=== PATIENT | female | born 1930 | race Caucasian/White ===

== ENCOUNTER 2018-11-10 13:09 | Inpatient (IN) ==
[2018-11-10] MEDS ORDERED: NS 1,000 ML IV ONE ×2 (14:58→18:12)
[2018-11-10] MEDS ORDERED: ZOFRAN IV ONE (14:58)
[2018-11-10 15:04] LABS: INFLUENZA A NEGATIVE (NEGATIVE); INFLUENZA B NEGATIVE (NEGATIVE)
[2018-11-10 15:13] LABS: BASO# 0.01 X1000 (0.0-0.2); BASO% 0.1 % (0.0-0.8); HEMATOCRIT 47.4 % (37.0-47.0); HEMOGLOBIN 15.4 g/dL (12.0-16.0); IMM GRAN# 0.02 X1000 (0.0-0.04); IMM GRAN% 0.3 % (0.0-0.5); LYMPH# 0.29 X1000 (1.2-3.4); MCH 29.2 PG (27-31); MCHC 32.5 g/dL (33-37); MCV 89.9 FL (81-99); MONO# 0.49 X1000 (0.11-0.59); MONO% 6.7 % (1.7-9.3); MPV 11.7 FL (7.4-10.4); NEUT# 6.53 X1000 (1.4-6.5); NEUT% 88.9 % (42.2-75.2); PLT 123 X1000 (130-400); RBC 5.27 XMIL (4.2-5.4); RDW 13.7 % (11.5-14.5); WBC 7.34 X1000 (4.8-10.8)
[2018-11-10 15:24] LABS: AGAP 16; ALBUMIN 4.1 g/dL (3.5-5.0); ALKALINE PHOSPHATASE 92 U/L (32-104); BUN 16 mg/dL (8-22); CHLORIDE 101 mmol/L (98-107); COSMO 284; CREATININE 0.7 mg/dL (0.5-0.9); ESTIMATED GFR > 60; GLUCOSE 130 mg/dL (70-104); GOT 23 U/L (10-30); GPT 12 U/L (10-36); LIPASE 7 U/L (13-60); POTASSIUM 3.6 mmol/L (3.5-5.1); SODIUM 141 mmol/L (136-145); TCO2 24 mmol/L (25-35); TOTAL PROTEIN 7.9 g/dL (6.3-8.3)
--- NOTE | 2018-11-10 16:49 | Diag Imaging Result Doc PS360 ---
EXAM: CT ABD/PELVIS W/IV CONT ONLY - 11/10/2018 HISTORY: abd pain TECHNIQUE: CT abdomen/pelvis with intravenous contrast. No oral contrast administered per request the referring provider. COMPARISON: Without contrast CT renal stone search of 08/24/2007 FINDINGS: The visualized lung bases appear clear except for mild subsegmental atelectasis. There are no substantial abnormalities of the liver, spleen, adrenal glands, or pancreas (other than some pancreatic atrophic changes) identified. There are no calcified gallstones or pericholecystic inflammation identified. There is right hydronephrosis to the ureteropelvic junction. There is no obstructing right renal stone identified. The hydronephrosis may relate to progressive change associated with partial ureteropelvic junction obstruction. There are nonobstructing stones in the bilateral kidneys. There are some cortical scarring at the left kidney. There is no left hydronephrosis identified. There are no substantial enlarged lymph nodes identified. There are atherosclerotic calcifications noted. There are lumbar spine degenerative changes noted. There is no evidence of bowel obstruction. The appendix is unremarkable. There is mild to moderate wall thickening along much of the colon and rectum. This is suspicious for colitis. There is colonic diverticulosis but there is no indication of diverticulitis. There is no abscess identified. There is no free air identified. There is no substantial free fluid seen. IMPRESSION: Moderate relatively diffuse colitis. No abscess. No free air. Uncomplicated colonic diverticulosis. No bowel obstruction. Right hydronephrosis which may relate to progressive changes from chronic partial ureteropelvic junction obstruction. Nonobstructing stones in bilateral kidneys. Left renal cortical scarring. This exam was performed using automated exposure control, adjustment of mA or kV according to patient size, and/or use of iterative reconstruction technique. Electronically signed by Paulie Mena 11/10/2018 4:47 PM
[2018-11-10 16:52] LABS: BILIRUBIN URINE NEGATIVE (NEGATIVE); BLOOD URINE 2+ (NEGATIVE); CLARITY SLIGHTLY CLOUDY (CLEAR); COLOR AMBER; GLUCOSE URINE NEGATIVE (NEGATIVE); KETONE URINE 2+(Moderate) mg/dL (NEGATIVE); PROTEIN URINE 1+(30 mg/dL) mg/dL (NEGATIVE); UROBILINOGEN URINE NORMAL
[2018-11-10 16:53] LABS: LEUKOCYTES URINE TRACE (NEGATIVE); NITRITE URINE NEGATIVE (NEGATIVE); URINE SOURCE CLEAN CATCH
[2018-11-10 16:54] LABS: URINE BACTERIA 4+ /HFP; URINE EPITHELIAL CELLS >10 /HPF (<10); URINE RBC <10 /HPF (<10); URINE WBC <10 /HPF (<10)
[2018-11-10 16:55] LABS: URINE CAST NONE SEEN /LPF; URINE CRYSTAL NONE SEEN /HPF; URINE YEAST NONE SEEN /HPF
--- NOTE | 2018-11-10 18:09 | PROVIDER DOCUMENTATION ---
This chart was entered by Alicia Gay Scribe, acting as scribe for Jelani Keys MD. HPI-Abdominal Pain/GI Problem - General Chief Complaint: N/V/D Stated Complaint: N/V/D/WEAKNESS Time Seen by Provider: 11/10/18 14:01 Source: patient Allergies/Adverse Reactions: Patient Allergies Allergy/AdvReac Type Severity Reaction Status Date / Time hydrocodone AdvReac NAUSEA/VOMI Verified 07/24/18 15:49 TING Home Medications: Home Medication List Medication Instructions Recorded Confirmed Last Taken Type Carvedilol [Coreg] 6.25 mg PO DAILY 04/21/14 04/28/14 04/28/14 06:30 History LOVAstatin [Mevacor] 20 mg PO DAILY 04/21/14 04/28/14 04/27/14 21:00 History Acetaminophen with Codeine 1 each PO Q4-6H PRN PRN #0 tablet 04/24/14 04/28/14 04/27/14 18:30 Rx [Tylenol with Codeine #3] Levofloxacin [Levaquin] 750 mg PO DAILY #8 tablet 04/24/14 04/28/14 04/27/14 21:00 Rx Aspirin [Aspirin EC] 81 mg PO DAILY 04/28/14 04/28/14 04/27/14 09:00 History - History of Present Illness-ABD Nature of Presenting Problems: 88 yof presents to ED c/o persistent vomiting, diarrhea, weakness since Friday night. Pt also states she fell Friday night in the bathroom floorand was too weak to get up so, layed there until the next morning when her woke up and could help her up.Pt has hx of HTN and hyperlipidemia. Pt denies abdominal pain, chest pain or SOB. Modifying Factors: improves with: nothing Review of Systems - Adult - REVIEW OF SYSTEMS - ADULT Constitutional: reports: see HPI, matt. denies: chills, fever Eyes: reports: no symptoms reported Ears, Nose, Mouth & Throat: reports: no symptoms reported Cardiovascular: reports: see HPI. denies: chest pain, syncope Respiratory: reports: no symptoms reported Gastrointestinal: reports: see HPI, diarrhea, nausea, vomiting. denies: abdominal pain, constipation Genitourinary: reports: no symptoms reported Musculoskeletal: reports: no symptoms reported Integumentary: reports: no symptoms reported Neurological: reports: see HPI, dizziness/vertigo, loss of balance Psychiatric: reports: no symptoms reported Endocrine: reports: no symptoms reported Hematologic/Lymphatic: reports: no symptoms reported Allergic/Immunologic: reports: no symptoms reported All Other Systems: Reviewed and Negative Past History - Adult - PAST MEDICAL HISTORY-ADULT Review of Records: reports: Old Records Reviewed, Nursing Assessment Review, Medications Reviewed, Social history reviewed & non-contributory. Major Childhood Illnesses: reports: denies history Cardiovascular: reports: HTN Respiratory: reports: denies history Gastrointestinal: reports: denies history Obstetrical/Gynecological: reports: denies history Genitourinary: reports: denies history Musculoskeletal: reports: denies history Neurological: reports: denies history Endocrine/Immune: reports: denies history Other Conditions: reports: denies history - PRIOR SURGERIES/PROCEDURES Surgical/Procedure History: reports: orthopedic (extremity) - IMMUNIZATION STATUS Childhood Immunizations: See Nurse Assessment Flu Vaccine: See Nurse Assessment - FAMILY HISTORY Family History: reviewed, not pertinent - SOCIAL HISTORY Smoking: denies Physical Exam-General - PHYSICAL EXAM-ADULT Initial Vital Signs Reviewed: Yes - CONSTITUTIONAL General Appearance: appears well, alert, no apparent distress. negative: combative - EYES Eyes: PERRL/EOMI, pink conjunctivae. negative: photophobia - HEAD, EARS, NOSE, MOUTH & THROAT HENMT: normal ENT inspection, dental decay. negative: moist mucous membranes, angioedema - NECK Neck: non-tender, full range of motion, supple, normal inspection. negative: Brudzinski's sign, carotid bruit - RESPIRATORY Respiratory: chest non-tender, lungs clear, normal breath sounds, no pleuratic chest pain, no respiratory distress, no accessory muscle use. negative: crackles, rales, rhonchi - CARDIOVASCULAR Cardiovascular: normal peripheral pulses, no edema, no gallop, no JVD, tachycardia. negative: JVD, bradycardia - GASTROINTESTINAL (ABDOMEN) Abdominal Exam: normal bowel sounds, non tender, soft. negative: rigid, rebou nd, tenderness - LYMPHATIC Lymphatic: no adenopathy. negative: striations - MUSCULOSKELETAL Back Exam: normal inspection. negative: swelling Extremity: normal range of motion, normal inspection. negative: deformity - SKIN Integumentary: normal color, normal turgor, warm/dry. negative: diaphoresis, jaundice - PSYCHIATRIC Psych/Mental Status: normal mood/affect, normal thought content, normal thought process, oriented x 3. negative: paranoid Progress - PLAN OF CARE/RESULTS Progress/Plan/Lab Results: Vital Signs - 8 hr 11/10/18 13:16 Temperature 98.3 F Pulse Rate 90 Respiratory Rate 18 Blood Pressure 134/82 O2 Sat by Pulse Oximetry 96 Orders Category Date Time Status AMYLASE [CHEM] Stat Lab 11/10/18 13:22 Ordered CBC WITH DIFF [HEME] Stat Lab 11/10/18 13:21 Ordered COMPREHENSIVE METABOLIC PANEL [CHEM] Stat Lab 11/10/18 13:22 Uncollected Flu [INFLUENZA SCREEN PL] Stat Lab 11/10/18 13:19 Received LIPASE [CHEM] Stat Lab 11/10/18 13:[address] W/POSS RFLX CULT [URINALYSIS] Stat Lab 11/10/18 13:22 Unco llected Result Diagrams: 11/10/18 14:48 11/10/18 14:48 - CT/MRI 1 CT Study: Abdomen, Pelvis Impression: See EMR Report (IMPRESSION: Moderate relatively diffuse colitis. No abscess. No free air. Uncomplicated colonic diverticulosis. No bowel obstruction. Right hydronephrosis which may relate to progressive changes from chronic partial ureteropelvic junction obstruction. Nonobstructing stones in bilateral kidneys. Left renal cortical scarring. This exam was performed using automated exposure control, adjustment of mA or kV according to patient size, and/or use of iterative reconstruction technique. Electronically signed by Paulie Mena 11/10/2018 4:47 PM) - CONSULTS/PCP/HOSPITALIST Notification #1 *Consult/PCP/Hospitalist*: Dr Cespedes Time Discussed: 18:08 Consult Disposition: Admit Departure - Departure Date of Disposition Decision: 11/10/18 Time of Disposition Decision: 18:06 DIAGNOSIS: Colitis, UTI (urinary tract infection), Hematuria, Weakness Disposition: ADMITTED INPATIENT 09 Certified Medical Emergency: Emergent Condition: Fair Referrals and Follow-Ups: Wagner Cespedes MD [Primary Care Provider] - - Critical Care Note This patient required my direct & personal management of CC.: No Attestation - Physician/ DALLIN Attestation Patient care was provided by Advanced Practice Provider:: No The physician spent face to face time with patient:: Yes Advanced Practice Provider documentation review:: Supervising physician onsite and consulted in the evaluation and care of this patient. The physician did have a face to face encounter with the patient. This chart was documented by the indicated scribe, (Alicia Gay, Ray) and accurately reflects the services I performed and decisions made by me, Jelani Keys MD, as attested by the provider's signature.
[2018-11-10] MEDS ORDERED: NS 1,000 ML ONE (18:21)
[2018-11-10] MEDS ORDERED: ROCEPHIN 1 GM in NS 50 ML IV SCH (18:30)
[2018-11-10 20:29] LABS: BANDS 10 % (0-1); LARGE PLATELETS 1+; LYMPHS 7 % (21-51); MONO 8 % (1-9); SEGS 75 % (42-75)
[2018-11-11] MEDS: ZOFRAN IV PRN ×3 (00:28→22:47)
[2018-11-11] MEDS: TYLENOL PO PRN (04:36)
[2018-11-11] MEDS ORDERED: ROCEPHIN IV SCH (09:00)
[2018-11-11] MEDS: COZAAR PO SCH (10:09)
[2018-11-11] MEDS: MEVACOR PO SCH (10:09)
[2018-11-11] MEDS: NS 1,000 ML IV SCH (10:10)
[2018-11-11] MEDS: COREG PO SCH (10:10)
[2018-11-11] MEDS: ASPIRIN EC PO SCH (10:30)
[2018-11-11 13:58] LABS: AGAP 12; ALBUMIN 3.2 g/dL (3.5-5.0); ALKALINE PHOSPHATASE 72 U/L (32-104); BUN 13 mg/dL (8-22); CALCIUM 8.1 mg/dL (8.8-10.2); CHLORIDE 104 mmol/L (98-107); COSMO 283; CREATININE 0.8 mg/dL (0.5-0.9); ESTIMATED GFR > 60; GLUCOSE 158 mg/dL (70-104); GOT 22 U/L (10-30); GPT 11 U/L (10-36); MAGNESIUM 1.8 mg/dL (1.5-2.7); POTASSIUM 3.3 mmol/L (3.5-5.1); SODIUM 140 mmol/L (136-145); TCO2 24 mmol/L (25-35); TOTAL PROTEIN 6.3 g/dL (6.3-8.3)
[2018-11-11 13:59] LABS: CK PROFILE 398 U/L (24-173)
[2018-11-11 14:06] LABS: BASO# 0.02 X1000 (0.0-0.2); BASO% 0.2 % (0.0-0.8); HEMATOCRIT 42.6 % (37.0-47.0); HEMOGLOBIN 14.1 g/dL (12.0-16.0); IMM GRAN# 0.05 X1000 (0.0-0.04); IMM GRAN% 0.6 % (0.0-0.5); LYMPH# 0.26 X1000 (1.2-3.4); LYMPH% 3.2 % (20.5-51.1); MCH 29.9 PG (27-31); MCHC 33.1 g/dL (33-37); MCV 90.4 FL (81-99); MONO# 0.63 X1000 (0.11-0.59); MONO% 7.8 % (1.7-9.3); MPV 11.7 FL (7.4-10.4); NEUT# 7.14 X1000 (1.4-6.5); NEUT% 88.2 % (42.2-75.2); PLT 114 X1000 (130-400); RBC 4.71 XMIL (4.2-5.4); RDW 13.8 % (11.5-14.5)
[2018-11-11] MEDS: FLAGYL PO SCH ×2 (14:08→20:32)
[2018-11-11 14:19] LABS: CK INDEX 0.5 (0.0-2.5); CK-MB 1.83 ng/mL (0.0-5.0)
[2018-11-11 14:37] LABS: BANDS 7 % (0-1); HYPOCHROM 2+; LARGE PLATELETS 2+; LYMPHS 2 % (21-51); MONO 11 % (1-9); SEGS 80 % (42-75)
[2018-11-11] MEDS: NEURONTIN PO SCH ×2 (16:21→20:32)
[2018-11-11] MEDS ORDERED: CIPRO PO SCH (21:00)
[2018-11-12] MEDS: TYLENOL PO PRN ×2 (00:17→05:00)
[2018-11-12] MEDS: FLAGYL PO SCH (01:15)
[2018-11-12] MEDS: NS 1,000 ML IV SCH ×3 (04:57→16:35)
[2018-11-12 08:26] LABS: BASO# 0.02 X1000 (0.0-0.2); BASO% 0.2 % (0.0-0.8); EOS# 0.01 X1000 (0.0-0.7); EOS% 0.1 % (0.0-10.0); HEMATOCRIT 38.9 % (37.0-47.0); IMM GRAN# 0.14 X1000 (0.0-0.04); IMM GRAN% 1.6 % (0.0-0.5); LYMPH# 0.34 X1000 (1.2-3.4); LYMPH% 3.8 % (20.5-51.1); MCHC 33.4 g/dL (33-37); MCV 89.8 FL (81-99); MONO# 0.81 X1000 (0.11-0.59); MPV 11.8 FL (7.4-10.4); NEUT# 7.65 X1000 (1.4-6.5); NEUT% 85.3 % (42.2-75.2); PLT 115 X1000 (130-400); RBC 4.33 XMIL (4.2-5.4); RDW 13.8 % (11.5-14.5); WBC 8.97 X1000 (4.8-10.8)
[2018-11-12 08:42] LABS: ALBUMIN 2.6 g/dL (3.5-5.0); CALCIUM 7.7 mg/dL (8.8-10.2); POTASSIUM 3.3 mmol/L (3.5-5.1); TOTAL BILIRUBIN 0.8 mg/dL (0.20-1.00); TOTAL PROTEIN 5.2 g/dL (6.3-8.3)
[2018-11-12 09:44] LABS: BANDS 5 % (0-1); LYMPHS 8 % (21-51); MONO 3 % (1-9); SEGS 84 % (42-75)
[2018-11-12] MEDS ORDERED: SODIUM CHLORIDE 0.9% INJ PRN (09:46)
[2018-11-12] MEDS ORDERED: IMODIUM PO PRN (09:56)
[2018-11-12] MEDS ORDERED: CIPRO 400 MG/D5W 400 MG/200 ML IVPB IV SCH (10:00)
[2018-11-12] MEDS: PHENERGAN IV PRN (10:41)
[2018-11-12] MEDS: COREG PO SCH (10:42)
[2018-11-12] MEDS: ASPIRIN EC PO SCH (10:42)
[2018-11-12] MEDS: CULTURELLE PO SCH (10:42)
[2018-11-12] MEDS: COZAAR PO SCH (10:42)
[2018-11-12] MEDS: MEVACOR PO SCH (10:42)
[2018-11-12] MEDS: NEURONTIN PO SCH ×3 (10:42→20:38)
--- NOTE | 2018-11-12 10:46 | Diag Imaging Result Doc PS360 ---
EXAM: CHEST-2 VIEWS - 11/12/2018 HISTORY: wheezing and desat TECHNIQUE: Chest two views COMPARISON: 01/30/2017 FINDINGS: Inspiration is somewhat shallow. Allowing for inspiration, lungs appear essentially clear. There is no consolidation, pleural effusion, or pneumothorax identified. There are stable small calcified granuloma from old granulomatous disease. IMPRESSION: Somewhat shallow inspiration. No other acute changes. Electronically signed by Paulie Mena 11/12/2018 10:44 AM
[2018-11-12 10:50] LABS: C DIFF TOXIN PL POSITIVE (NEGATIVE); OCCULT BLOOD 1 NEGATIVE (NEGATIVE)
[2018-11-12] MEDS: FLAGYL 500 MG/NS 500 MG/100 ML IVPB IV SCH ×4 (11:01→23:00)
[2018-11-12] MEDS: NS + KCL 20 MEQ 1,000 ML IV SCH (12:11)
[2018-11-12] MEDS: ZOFRAN IV PRN (15:57)
[2018-11-12] MEDS: VANCOCIN PO SCH ×2 (15:57→20:38)
[2018-11-12] MEDS ORDERED: XOPENEX NEB INH ONE (20:02)
[2018-11-12] MEDS: LOVENOX SUBQ SCH (20:38)
[2018-11-12] MEDS: XOPENEX NEB INH SCH (22:40)
[2018-11-13] MEDS: VANCOCIN PO SCH ×4 (03:00→20:53)
[2018-11-13] MEDS: XOPENEX NEB INH SCH ×6 (03:13→23:22)
[2018-11-13] MEDS: NS + KCL 20 MEQ 1,000 ML IV SCH ×2 (03:56→06:22)
[2018-11-13] MEDS: NS 1,000 ML IV SCH ×3 (03:57→20:53)
[2018-11-13] MEDS: FLAGYL 500 MG/NS 500 MG/100 ML IVPB IV SCH ×4 (05:53→22:39)
[2018-11-13 07:48] LABS: BASO# 0.02 X1000 (0.0-0.2); BASO% 0.2 % (0.0-0.8); HEMATOCRIT 39.9 % (37.0-47.0); HEMOGLOBIN 12.8 g/dL (12.0-16.0); IMM GRAN# 0.38 X1000 (0.0-0.04); IMM GRAN% 3.4 % (0.0-0.5); LYMPH# 0.51 X1000 (1.2-3.4); LYMPH% 4.6 % (20.5-51.1); MCH 28.8 PG (27-31); MCHC 32.1 g/dL (33-37); MCV 89.9 FL (81-99); MONO# 1.39 X1000 (0.11-0.59); MONO% 12.5 % (1.7-9.3); MPV 12.6 FL (7.4-10.4); NEUT# 8.84 X1000 (1.4-6.5); NEUT% 79.3 % (42.2-75.2); PLT 126 X1000 (130-400); RBC 4.44 XMIL (4.2-5.4); RDW 14.4 % (11.5-14.5); WBC 11.14 X1000 (4.8-10.8)
[2018-11-13 07:51] LABS: ALBUMIN 2.1 g/dL (3.5-5.0); CALCIUM 7.5 mg/dL (8.8-10.2); CREATININE 1.5 mg/dL (0.5-0.9); POTASSIUM 3.5 mmol/L (3.5-5.1); TOTAL BILIRUBIN 0.4 mg/dL (0.20-1.00); TOTAL PROTEIN 4.8 g/dL (6.3-8.3)
[2018-11-13 08:26] LABS: LYMPHS 6 % (21-51); MONO 11 % (1-9); SEGS 82 % (42-75)
[2018-11-13 08:27] LABS: EOS 1 % (1-10); INR 1.18; PROTIME 15.6 Seconds (11.0-16.0)
[2018-11-13] MEDS: LEVAQUIN 250 MG/D5W 250 MG/50 ML IVPB IV SCH (09:41)
[2018-11-13] MEDS: LOVENOX SUBQ SCH (09:42)
[2018-11-13] MEDS: NEURONTIN PO SCH ×3 (09:42→20:53)
[2018-11-13] MEDS: COREG PO SCH (09:42)
[2018-11-13] MEDS: CULTURELLE PO SCH (09:42)
[2018-11-13] MEDS: COZAAR PO SCH (09:43)
[2018-11-13] MEDS: ASPIRIN EC PO SCH (09:43)
--- NOTE | 2018-11-13 11:36 | Diag Imaging Result Doc PS360 ---
EXAM: LUNG SCAN / VQ HISTORY: elevated D-dimer; SOB TECHNIQUE: Ventilatory images obtained during inhalation of 38 mCi technetium DTPA. Perfusion images were obtained following the administration of 5.9 mCi technetium MAA COMPARISON: Chest radiograph 11/12/2018 FINDINGS: Perfusion images show no peripheral, wedge-shaped, segmental abnormalities to suggest acute pulmonary embolism. Ventilatory images show patchy radiotracer distribution. No mismatches. There is elevation the right hemidiaphragm. IMPRESSION: No evidence for acute pulmonary embolism. Electronically signed by Nikkie De 11/13/2018 11:33 AM
[2018-11-13] MEDS: ZOFRAN IV PRN (12:28)
--- NOTE | 2018-11-13 12:31 | EKG Report ---
Test Performed on : 11/13/2018 11:11:50 AM Test Reason : tachycardia; dizziness Blood Pressure : / mmHG Vent. Rate : 099 BPM Atrial Rate : 099 BPM P-R Int : 190 ms QRS Dur : 078 ms QT Int : 342 ms P-R-T Axes : 050 -08 040 degrees QTc Int : 438 ms Sinus rhythm. with premature atrial complexes. Otherwise normal ECG When compared with ECG of 28-APR-2014 09:05, premature atrial complexes. are now present Confirmed by Wagner Cespedes MD ([id number]) on 11/15/2018 11:05:29 AM
--- NOTE | 2018-11-13 12:45 | PROGRESS NOTE ---
DATE: 11/11/2018 OBJECTIVE: Temperature is 100.3 orally, pulse was 99, respiratory rate 20, blood pressure 149/67, O2 saturation on room air was 97%. She has had the following labs. She had negative flus from the outset of admission. Her urinalysis from admission showed 1+ protein, 2+ ketones, 2+ blood, less than 10 RBCs, trace white cells, less than 10 white cells and greater than 10 epithelial cells, 4+ bacteria. Her comp showed sodium 140, potassium 3.3, chloride 104, CO2 is 24, BUN is 13, creatinine 0.8, GFR greater than 60, glucose 158. Calcium 8.1, magnesium 1.8, total bilirubin 0.7. AST is 22, ALT is 11, alkaline phosphatase 72. CK is 398. Index 0.5. CK index 1.83. Total protein 6.3, albumin 3.2, globulin 3. She continues to have vomiting and diarrhea, lies kind of motionless in the bed, not really having significant belly pain. She is too nauseated to eat and is having lots of diarrhea. She is not urinating that much. ASSESSMENT AND PLAN: We will continue to hydrate, and we will replace her potassium. cc: Wagner Cespedes MD
--- NOTE | 2018-11-13 12:48 | PROGRESS NOTE ---
DATE: 11/12/2018 OBJECTIVE: Vital signs: Temperature 99.4 but has been running a temperature in the evening. Heart rate 121, respiratory rate 23, blood pressure 134/54, O2 saturation is 99% on 2 L. Her labs on 11/12/2018 showed sodium 142, potassium 3.3, chloride 109, CO2 of 23, BUN is 22, creatinine 1, glucose 121, GFR is 52, calcium 7.7, but albumin is 2.6. Total protein 5.2. LFTs are normal. Lactate is normal. Stool shows C. difficile toxin, so now we have an etiology of her nausea, vomiting, diarrhea and generalized weakness. I am not impressed with her urinary symptoms. I think she does not really complain of anything that would suggest that she has a urinary tract infection. Her culture is growing out Klebsiella pneumoniae. Stool with no enteric pathogens. She continues to have no significant belly pain, just general weakness, vomiting and diarrhea. We, however, are going to begin treatment on her Clostridium difficile. We are not sure where she got it. She has not been on any antibiotics. Nobody in her family has got it. We will use some vancomycin for it along with metronidazole and see if we can impact the illness. She has been having some issues with shortness of breath. Legs are not particularly swollen. Lungs are relatively clear. I have not seen her during one of these spells, but we are thinking about doing a venogram or some imaging of the legs and maybe VQ scan on her in the a.m. and make sure she is not throwing PEs. cc: Wagner Cespedes MD
--- NOTE | 2018-11-13 12:55 | PROGRESS NOTE ---
DATE: 11/13/2018 The patient continues to have some diarrhea but has not eaten anything nor has she thrown up but the initial night she presented. Diarrhea still persists. She is growing out Klebsiella. We are including that with some Cipro or Levaquin. We are continuing to rehydrate. We are trying to encourage some prophylactic usage of antiemetics to premedicate her for meals. She is not eating much. Her albumin is dropping a bit. Tongue still dry, but she is alert. She had a VQ scan that showed no clots. The leg images showed no clots. So we had started therapeutic Lovenox the night prior, and we are going to wean her down to just DVT prevention dosing. cc: Wagner Cespedes MD
--- NOTE | 2018-11-13 12:59 | Diag Imaging Result Doc PS360 ---
EXAM: CHEST-PORTABLE HISTORY: sob TECHNIQUE: Single view of the chest was performed portably. COMPARISON: 11/12/2018 FINDINGS: The cardiomediastinal silhouette is within normal limits. Lung volumes are reduced. There is probably a small left effusion. The pulmonary vasculature is not congested. No focal consolidation. IMPRESSION: Reduced lung volumes. Tiny left effusion. Electronically signed by Nikkie De 11/13/2018 12:57 PM
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
--- NOTE | 2018-11-13 17:47 | Extremity Venous Study ---
EXAM: Venous U/S Bilateral Legs 11/13/2018 HISTORY: elevated d-dimer TECHNIQUE: Compression venous ultrasound with color Doppler of both lower extremities. COMMENT: The deep veins of both lower extremities are compressible and demonstrate color Doppler flow with augmentation. No abnormal fluid collections are present. There has been no significant change since the previous examination of 05/07/2018. IMPRESSION: No evidence of deep venous thrombosis. Electronically signed by Jonathon Huizar 11/13/2018 5:44 PM
[2018-11-13] MEDS: MEVACOR PO SCH (20:53)
[2018-11-14] MEDS: VANCOCIN PO SCH ×4 (02:45→21:00)
[2018-11-14] MEDS: XOPENEX NEB INH SCH ×7 (03:15→23:55)
[2018-11-14] MEDS: FLAGYL 500 MG/NS 500 MG/100 ML IVPB IV SCH ×4 (04:45→22:43)
[2018-11-14] MEDS ORDERED: LANOXIN IV STA (04:58)
[2018-11-14] MEDS ORDERED: NS 500 ML IV ONE (04:59)
[2018-11-14] MEDS ORDERED: NEO-SYNEPHRINE 50 MG in NS 250 ML IV SCH (07:30)
[2018-11-14 07:58] LABS: BASO# 0.03 X1000 (0.0-0.2); BASO% 0.2 % (0.0-0.8); EOS# 0.13 X1000 (0.0-0.7); EOS% 1.1 % (0.0-10.0); HEMOGLOBIN 13.7 g/dL (12.0-16.0); IMM GRAN# 0.21 X1000 (0.0-0.04); IMM GRAN% 1.7 % (0.0-0.5); LYMPH# 0.52 X1000 (1.2-3.4); LYMPH% 4.2 % (20.5-51.1); MCH 29.3 PG (27-31); MCHC 32.6 g/dL (33-37); MCV 89.7 FL (81-99); MONO% 7.3 % (1.7-9.3); NEUT# 10.56 X1000 (1.4-6.5); NEUT% 85.5 % (42.2-75.2); PLT 129 X1000 (130-400); RBC 4.68 XMIL (4.2-5.4); WBC 12.35 X1000 (4.8-10.8)
[2018-11-14] MEDS: NEO-SYNEPHRINE 50 MG in NS 250 ML IV SCH ×2 (07:59→17:12)
[2018-11-14 08:13] LABS: CALCIUM 7.8 mg/dL (8.8-10.2); CREATININE 1.4 mg/dL (0.5-0.9); POTASSIUM 3.4 mmol/L (3.5-5.1); TOTAL BILIRUBIN 0.3 mg/dL (0.20-1.00)
[2018-11-14] MEDS ORDERED: LOPRESSOR IV ONE (08:37)
[2018-11-14] MEDS ORDERED: KLOR-CON PO SCH (09:00)
[2018-11-14] MEDS ORDERED: LOVENOX SUBQ SCH (09:00)
--- NOTE | 2018-11-14 09:16 | PROGRESS NOTE ---
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 She does not recall ever having a history of atrial fibrillation nor do I recall her having one. My office notes are unavailable. She is in atrial fibrillation. Her chest x-ray from the previous day was normal, just low volumes. She did have some issues with her blood pressure, 78. They had been running at 93, and they got down to 82/63 this morning with a heart rate of 138 on 11/14/2018. At 4:00 this morning, her pulse was 66, respiratory rate was 22, blood pressure was 86/52. O2 saturation was 100 here with her 3 L of O2. Her EKG done this morning showed a ventricular rate of 135. There are some nonspecific ST segment changes. I do not clearly see P waves, but it is pretty regular tachycardia. We put her on some Pramod-Synephrine to maintain her blood pressures. They are fine at this minute, still currently has 135 heart rate. We are going to try some amiodarone or a beta kelley here to see if we can convert this. I am going to get Cardiology in to see. cc: Wagner Cespedes MD
[2018-11-14] MEDS: COZAAR PO SCH (09:30)
[2018-11-14] MEDS: LEVAQUIN 250 MG/D5W 250 MG/50 ML IVPB IV SCH (09:30)
[2018-11-14] MEDS: LOVENOX SUBQ SCH (09:30)
[2018-11-14] MEDS: NEURONTIN PO SCH ×3 (09:31→21:00)
[2018-11-14] MEDS: COREG PO SCH (09:31)
[2018-11-14] MEDS: ASPIRIN EC PO SCH (09:31)
[2018-11-14] MEDS: CULTURELLE PO SCH (09:31)
[2018-11-14] MEDS: NS + KCL 20 MEQ 1,000 ML IV SCH ×2 (09:40→22:44)
[2018-11-14 09:53] LABS: EOS 1 % (1-10); LYMPHS 3 % (21-51); MONO 7 % (1-9); SEGS 88 % (42-75)
[2018-11-14] MEDS ORDERED: NS 250 ML IV ONE (10:43)
[2018-11-14] MEDS ORDERED: ALBUMIN 25% IV ONE (10:44)
[2018-11-14 11:18] LABS: BILIRUBIN URINE NEGATIVE (NEGATIVE); BLOOD URINE NEGATIVE (NEGATIVE); CLARITY SL. CLOUDY (CLEAR); COLOR BROWN; GLUCOSE URINE NEGATIVE (NEGATIVE); KETONE URINE 1+(Small) mg/dL (NEGATIVE); LEUKOCYTES URINE 1+ (NEGATIVE); NITRITE URINE POSITIVE (NEGATIVE); PH URINE 6.5; PROTEIN URINE TRACE mg/dL (NEGATIVE); UROBILINOGEN URINE NORMAL
[2018-11-14 11:19] LABS: URINE BACTERIA 1+ /HFP; URINE CAST NONE SEEN /LPF; URINE CRYSTAL NONE SEEN /HPF; URINE EPITHELIAL CELLS <10 /HPF (<10); URINE RBC <10 /HPF (<10); URINE SOURCE CATH; URINE WBC <10 /HPF (<10); URINE YEAST NONE SEEN /HPF
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
[2018-11-14] MEDS: TYLENOL WITH CODEINE #3 PO PRN (21:00)
[2018-11-14] MEDS: MEVACOR PO SCH (21:00)
[2018-11-14] MEDS: PHENERGAN IV PRN (22:41)
[2018-11-15] MEDS: TYLENOL WITH CODEINE #3 PO PRN (01:52)
[2018-11-15] MEDS: VANCOCIN PO SCH ×4 (02:23→22:33)
[2018-11-15] MEDS: PHENERGAN IV PRN (03:22)
[2018-11-15] MEDS: NEO-SYNEPHRINE 50 MG in NS 250 ML IV SCH ×2 (03:23→15:41)
[2018-11-15] MEDS: XOPENEX NEB INH SCH ×7 (03:40→23:30)
[2018-11-15] MEDS: NS + KCL 20 MEQ 1,000 ML IV SCH (07:22)
[2018-11-15] MEDS: FLAGYL 500 MG/NS 500 MG/100 ML IVPB IV SCH ×3 (07:23→20:00)
[2018-11-15] MEDS: ASPIRIN EC PO SCH (08:00)
[2018-11-15] MEDS: COZAAR PO SCH (08:00)
[2018-11-15] MEDS: LEVAQUIN 250 MG/D5W 250 MG/50 ML IVPB IV SCH (08:00)
[2018-11-15] MEDS: COREG PO SCH (08:00)
[2018-11-15] MEDS: CULTURELLE PO SCH (08:00)
[2018-11-15] MEDS: NEURONTIN PO SCH ×3 (08:01→22:33)
[2018-11-15] MEDS: LOVENOX SUBQ SCH (08:01)
--- NOTE | 2018-11-15 08:04 | Diag Imaging Result Doc PS360 ---
EXAM: CHEST-PORTABLE 11/15/2018 HISTORY: wet lung sounds TECHNIQUE: AP portable at 0725 COMMENT: There is worsened blunting of the right costophrenic angle compared to 11/13/2018. There is increased basilar opacity bilaterally which is presumably due to atelectasis. Possibility of mild pulmonary edema cannot be excluded. IMPRESSION: Worsened bibasilar atelectasis and right pleural effusion. Questionable pulmonary edema. Electronically signed by Jonathon Huizar 11/15/2018 8:02 AM
[2018-11-15] MEDS ORDERED: XOPENEX NEB ONE (08:28)
[2018-11-15 10:04] LABS: BASO% 0.7 % (0.0-0.8); EOS# 0.06 X1000 (0.0-0.7); EOS% 0.4 % (0.0-10.0); HEMATOCRIT 47.6 % (37.0-47.0); HEMOGLOBIN 15.1 g/dL (12.0-16.0); IMM GRAN# 0.21 X1000 (0.0-0.04); IMM GRAN% 1.5 % (0.0-0.5); LYMPH# 0.69 X1000 (1.2-3.4); LYMPH% 4.9 % (20.5-51.1); MCH 29.6 PG (27-31); MCHC 31.7 g/dL (33-37); MCV 93.3 FL (81-99); MONO# 1.11 X1000 (0.11-0.59); MONO% 7.9 % (1.7-9.3); MPV 12.5 FL (7.4-10.4); NEUT# 11.95 X1000 (1.4-6.5); NEUT% 84.6 % (42.2-75.2); PLT 139 X1000 (130-400); RDW 16.1 % (11.5-14.5); WBC 14.12 X1000 (4.8-10.8)
[2018-11-15 10:27] LABS: BE -11.1 mmoll (-3.0-3.0); BLOOD TYPE ARTERIAL; METHB 1.5 % (0.0-1.5); O2(CT) 19.2 mL/dL (15.0-23.0); O2HB 93.6 % (95.0-99.0); PCO2(98.6) 39 mmHg (35-45); PO2(98.6) 72 mmHg (60-100); SAMPLE BLOOD; SAO2 96.8 % (95.0-100.0); THB 14.6 g/dL (11.5-17.4)
[2018-11-15 10:27] LABS: ALBUMIN 2.3 g/dL (3.5-5.0); CALCIUM 8.1 mg/dL (8.8-10.2); CREATININE 0.9 mg/dL (0.5-0.9); POTASSIUM 4.3 mmol/L (3.5-5.1); TOTAL BILIRUBIN 0.3 mg/dL (0.20-1.00); TOTAL PROTEIN 5.3 g/dL (6.3-8.3)
[2018-11-15 10:32] LABS: HCO3-(ACT) 16.2 mmoll (20.0-26.0); pH(98.6) 7.22 (7.35-7.45)
[2018-11-15 10:33] LABS: ALLEN TEST YES; MODALITY CANNULA
--- NOTE | 2018-11-15 12:40 | Diag Imaging Result Doc PS360 ---
EXAM: CT ABD/PELVIS W/IV CONT ONLY 11/15/2018 HISTORY: pain TECHNIQUE: This exam was performed using automated exposure control, adjustment of mA or kV according to patient size, and/or use of iterative reconstruction technique. COMMENT: There are large bilateral pleural effusions which were not present on 11/10/2018. Considerable compressive atelectasis is present particularly in the right lower lobe. There is ascites. This was also not present previously. There continues to be mucosal thickening throughout the colon. This appears worse than on the previous study. There is bilateral nephrolithiasis. There is some cortical scarring in the left kidney. There is severe hydronephrosis on the right which may be slightly improved since the previous study. There are two stones in the renal pelvis the larger of the two measuring almost 8 mm in diameter. There is a Lyle catheter in the urinary bladder. There is no evidence of ureterolithiasis. There are granulomata in the spleen. The liver, adrenal glands, pancreas and aorta are stable in appearance. There is some anasarca which was not present at the time the previous study. The gallbladder is distended. There are no apparent stones. Pelvis: There is thickening of the rectosigmoid mucosa and dilatation of the rectum more so than on the previous study. There is considerable edema in the perirectal fat which was not the case previously. The appendix is unremarkable in appearance. The regional skeleton is stable in appearance. IMPRESSION: 1. Bilateral pleural effusions, ascites, and anasarca. 2. Worsened generalized colitis. 3. Slightly improved right hydronephrosis. Bilateral nephrolithiasis. Electronically signed by Jonathon Huizar 11/15/2018 12:38 PM
[2018-11-15] MEDS ORDERED: ALBUMIN 25% IV ONE (13:18)
[2018-11-15] MEDS ORDERED: NS 1,000 ML IV SCH (14:45)
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
--- NOTE | 2018-11-15 16:03 | PROGRESS NOTE ---
DATE: 11/15/2018 She has had a pretty eventful couple of days and eventful night. Her lab today shows that her white count is rising and is at 14,120 with a left shift, 84% to 85% neutrophils. Hematocrit 47.6 suggesting hemoconcentration. She is kind of third spacing fluids in her legs on her chest x-ray and in her abdomen and platelet count is 139. Her blood gases today are pH of 7.22, PCO2 39, not a respiratory acidosis and probably a metabolic acidosis with incomplete correction. Her PO2 is 72 on 28%. Chemistries; sodium 145, potassium 4.3, chloride 117, CO2 15, BUN 40, creatinine 0.9. GFR calculated at 59 which is better than the previous day when it was 35. Her calcium is low at 8.1 but a bit better. Lactate was fine. It is 0.6. Albumin is 2.3. LFTs are normal. We did a CT of her abdomen and pelvis. I checked her rectum, it was negative for impaction. She had bilateral pleural effusions which had not been present on 11/10. She had considerable compressive atelectasis and was particularly large in the right lower lobe. There was abdominal ascites that was not present previously. There continued to be mucosal thickening throughout the colon, worsening since the previous study with a background of some bilateral nephrolithiasis. There is some cortical scarring in the left kidney. There is severe hydronephrosis on the right which may be slightly improved since the previous study. There are 2 stones in the rectal pelvis, the larger of the 2 measuring about 8 mm in diameter. A Lyle is in place. No evidence of urolithiasis. There were granulomata in the spleen. The liver, adrenal glands, pancreas and aorta are all stable. There was some anasarca which was not present at the time of the previous study. The gallbladder was distended. There were no apparent stones. We discussed the case with the hospitalist, Willie Rush MD and Dr. Mccormick of GI. He says that we need to be concerned about toxic megacolon and ischemic gut. We then talked to Dr. Silveira who is going to come and see her and assess her belly as to those two possibilities. Meanwhile, we are going to continue giving her p.o. vancomycin and IV Flagyl. Her lactic acids that were drawn today on two different occasions have been normal. She is a bit more distended and there is edema that is accumulating, possibly in conjunction with her kidney function. cc: Wagner Cespedes MD
[2018-11-15 17:45] LABS: BLOOD TYPE ARTERIAL; METHB 1.5 % (0.0-1.5); O2(CT) 16.9 mL/dL (15.0-23.0); O2HB 93.5 % (95.0-99.0); PCO2(98.6) 48 mmHg (35-45); PO2(98.6) 75 mmHg (60-100); SAMPLE BLOOD; SAO2 96.5 % (95.0-100.0); THB 12.8 g/dL (11.5-17.4)
[2018-11-15 17:48] LABS: HCO3-(ACT) 16.7 mmoll (20.0-26.0); pH(98.6) 7.18 (7.35-7.45)
[2018-11-15 17:49] LABS: ALLEN TEST YES; BE -10.4 mmoll (-3.0-3.0); MODALITY CANNULA
--- NOTE | 2018-11-15 18:22 | GENERAL SURGERY PROGRESS NOTE ---
DATE: 11/15/2018 Ms Link's gases today have deteriorated further. Her pH has fallen down. Her base excess remains in the negative 10 to 11 range. Her lactate is 0.9. In view of her rising pCO2 and fall in pH, I feel like she is gradually becoming worse. Her renal function is deteriorating. I think that her only chance to get better is to undergo surgery for a total abdominal colectomy and ileostomy. I have discussed this with her son. I discussed the benefits and risks, the fact that she will require a colostomy. I discussed it with her as well and she left it up to us. Mr. Link her son is in agreement to proceed realizing the risks involved either way we go. So will proceed with surgery tonight and have her transferred over [facility]. cc: MD Wagner Porter MD
[2018-11-15] MEDS ORDERED: SODIUM CHLORIDE 0.9% 10 ML ONE (18:50)
[2018-11-15] MEDS ORDERED: FENTANYL ONE (18:50)
[2018-11-15] MEDS ORDERED: XYLOCAINE-MPF 2% ONE (18:50)
[2018-11-15] MEDS ORDERED: QUELICIN (DOSE) ONE (18:50)
[2018-11-15] MEDS ORDERED: DIPRIVAN 1% ONE (18:50)
[2018-11-15] MEDS ORDERED: NORCURON ONE ×2 (18:50→20:48)
[2018-11-15] MEDS ORDERED: IMODIUM PO PRN (18:55)
[2018-11-15] MEDS ORDERED: TYLENOL PO PRN (18:56)
[2018-11-15] MEDS ORDERED: SODIUM CHLORIDE 0.9% INJ PRN (18:57)
[2018-11-15] MEDS ORDERED: ZOFRAN IV PRN (18:57)
[2018-11-15] MEDS ORDERED: TYLENOL WITH CODEINE #3 PO PRN (18:58)
[2018-11-15] MEDS ORDERED: NEO-SYNEPHRINE 50 MG in NS 250 ML IV SCH (19:00)
[2018-11-15] MEDS ORDERED: XOPENEX NEB INH SCH (19:30)
[2018-11-15] MEDS ORDERED: NEO-SYNEPHRINE ONE (19:35)
[2018-11-15] MEDS ORDERED: EPHEDRINE ONE ×2 (19:47→21:16)
[2018-11-15] MEDS ORDERED: OFIRMEV 1000 MG/ISOTONIC SOLN 1,000 MG/100 ML BOTTLE ONE (20:03)
--- NOTE | 2018-11-15 21:51 | OPERATIVE NOTE ---
PROCEDURE DATE: 11/15/2018 PROCEDURE: Abdominal colectomy with end-ileostomy. SURGEON: Clif Silveira MD. AUTO VINYL TOP INSTALLER: Cleve. PREOPERATIVE DIAGNOSIS: Clostridium difficile colitis with toxic megacolon. POSTOPERATIVE DIAGNOSIS: Clostridium difficile colitis with toxic megacolon. INDICATIONS: An 88-year-old with Clostridium difficile colitis that has progressed and worsened over the past 5 days despite adequate medical therapy. She is now developing acidosis, increasing white count, and a tender abdomen. DESCRIPTION OF PROCEDURE: Satisfactory general endotracheal anesthesia was achieved, and the abdomen was prepped and draped in a sterile fashion. A midline incision was made. We carried our incision into the abdominal cavity to extend the skin incision. We began at the cecum and incised the white line of Toldt to mobilize the right or ascending colon from the retroperitoneum. We went from proximal to distal along the course of the colon up to the hepatic flexure. We then mobilized the hepatic flexure until the right colon came up into the wound. We then used the LigaSure to take the greater omentum off the transverse colon from right to left. As we progressed toward the splenic flexure, again we continued to take the greater omentum off the distal transverse colon. We then incised the white line of Toldt along the descending colon from the sigmoid up to the splenic flexure again in order to help mobilize the left colon out of the retroperitoneum. We did incise the tissue and mobilized the splenic flexure to get the colon out of the retroperitoneum and far away from the attachments to the spleen. We then went back to the ascending colon. Again, we scored the peritoneum medial to the colon and then began dividing the mesentery with the LigaSure. As we reached the major vessels, we clamped them with Lola clamps, we divided them and ligated with 2-0 silk suture ligatures. We went from a proximal to distal. Took the ileocolic vessels, the right colic, middle colic, and the left colic vessels. We then continued our dissection with the LigaSure down to the sigmoid. We then scored the peritoneum down into the pelvis to the peritoneal reflection. We divided the sigmoid vessels with the LigaSure. We continued distally until we reached near the peritoneal reflection. We divided the ilium with a MELE 80 blue cartridge. This then allowed us to mobilize the colon all the way to the sigmoid and actually to the distal sigmoid and proximal rectum, and here we used a TA 60 green cartridge to divide the thickened proximal rectum. This allowed us to hand off the whole specimen. We then irrigated out the abdomen with the warm saline. We achieved satisfactory hemostasis with electrocautery throughout the extent of the mesentery and the retroperitoneum. We did not feel that we needed to oversew the distal staple line. It was essentially covered up by the uterus anyway. The mesentery was adequately hemostatic. An NG tube was noted to be in appropriate position within the stomach. We then turned our attention to the right mid abdomen where we grasped the skin and made a small opening in the skin making a small stoma. We then dissected down to the anterior rectus sheath and incised the anterior rectus sheath longitudinally and a little bit transversely as well. We spread the rectus muscle and then opened the posterior rectus sheath to admit 2 fingerbreadths easily. We then enlarged the incision enough to deliver the ilium untwisted and adequate to leave some of the anterior abdominal wall. We placed some 3-0 Polysorb into the Khalida's fascia to the bowel wall. We then were satisfied that it was untwisted and had adequate room for the mesentery of the ileum. We then proceeded to close the peritoneum with 2-0 chromic. We closed the fascia with running #2 Prolene. The skin was reapproximated with gayathri. We then covered the wound with a sterile towel. We cut a hole in the flange and placed the flange on the skin. We then amputated the ilium back to viable tissue and then opened and matured the ileostomy using 3-0 Polysorb. The bag was placed. Sterile island dressing was applied. She tolerated it well and was sent to the recovery room in satisfactory condition. cc: MD Wagner Porter MD
[2018-11-15 22:15] LABS: ALLEN TEST YES; BE -10.4 mmoll (-3.0-3.0); BLOOD TYPE ARTERIAL; HCO3-(ACT) 16.8 mmoll (20.0-26.0); METHB 1.4 % (0.0-1.5); O2(CT) 16.2 mL/dL (15.0-23.0); O2HB 97.2 % (95.0-99.0); PCO2(98.6) 34 mmHg (35-45); PO2(98.6) 326 mmHg (60-100); SAMPLE BLOOD; SAO2 99.8 % (95.0-100.0); SRATE 12 BPM; THB 11.2 g/dL (11.5-17.4); TVOL 600 mL; pH(98.6) 7.27 (7.35-7.45)
[2018-11-15] MEDS ORDERED: LEVOPHED 8 MG in D5 1/2 NS 250 ML IV SCH (22:15)
[2018-11-15] MEDS ORDERED: ROCEPHIN 1 GM in NS 50 ML IV SCH (22:15)
[2018-11-15 22:16] LABS: MODALITY VENTILATOR
[2018-11-15] MEDS: NS 1,000 ML IV SCH (22:32)
[2018-11-15] MEDS: MEVACOR PO SCH (22:33)
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
[2018-11-16] MEDS: VANCOCIN PO SCH ×4 (01:22→21:11)
[2018-11-16] MEDS: FLAGYL 500 MG/NS 500 MG/100 ML IVPB IV SCH ×4 (02:44→21:11)
[2018-11-16] MEDS: XOPENEX NEB INH SCH ×6 (03:29→23:35)
[2018-11-16] MEDS: DILAUDID IV PRN ×3 (04:31→12:26)
[2018-11-16 04:38] LABS: ALLEN TEST YES; BE -10.2 mmoll (-3.0-3.0); BLOOD TYPE ARTERIAL; METHB 1.2 % (0.0-1.5); O2(CT) 15.8 mL/dL (15.0-23.0); O2HB 97.2 % (95.0-99.0); PCO2(98.6) 33 mmHg (35-45); PO2(98.6) 129 mmHg (60-100); SAMPLE BLOOD; SAO2 99.8 % (95.0-100.0); SRATE 12 BPM; THB 11.4 g/dL (11.5-17.4); TVOL 600 mL; pH(98.6) 7.28 (7.35-7.45)
[2018-11-16 04:39] LABS: MODALITY VENTILATOR
[2018-11-16 05:45] LABS: BASO# 0.05 X1000 (0.0-0.2); BASO% 0.6 % (0.0-0.8); EOS# 0.07 X1000 (0.0-0.7); EOS% 0.8 % (0.0-10.0); HEMATOCRIT 34.2 % (37.0-47.0); HEMOGLOBIN 10.9 g/dL (12.0-16.0); IMM GRAN# 0.15 X1000 (0.0-0.04); IMM GRAN% 1.7 % (0.0-0.5); LYMPH# 0.65 X1000 (1.2-3.4); LYMPH% 7.3 % (20.5-51.1); MCH 29.2 PG (27-31); MCHC 31.9 g/dL (33-37); MCV 91.7 FL (81-99); MONO# 0.65 X1000 (0.11-0.59); MONO% 7.3 % (1.7-9.3); MPV 11.9 FL (7.4-10.4); NEUT# 7.33 X1000 (1.4-6.5); NEUT% 82.3 % (42.2-75.2); PLT 121 X1000 (130-400); RBC 3.73 XMIL (4.2-5.4); RDW 16.1 % (11.5-14.5)
[2018-11-16 06:00] LABS: CALCIUM 7.9 mg/dL (8.8-10.2); CREATININE 0.9 mg/dL (0.5-0.9); POTASSIUM 3.5 mmol/L (3.5-5.1)
--- NOTE | 2018-11-16 06:00 | Diag Imaging Result Doc PS360 ---
EXAM: CHEST-PORTABLE HISTORY: on vent TECHNIQUE: Portable chest single view COMPARISON: 11/15/2018 FINDINGS: An endotracheal tube has been placed. This is in good position. A nasogastric tube overlies the esophagus and stomach. The lungs are much better expanded on the current exam. There is apical pleural thickening and scarring. There is a small right pleural effusion. IMPRESSION: Endotracheal and nasogastric tubes in good position Electronically signed by Kip Wilkerson 11/16/2018 5:58 AM
[2018-11-16] MEDS: NS 1,000 ML IV SCH ×3 (06:07→15:00)
--- NOTE | 2018-11-16 06:57 | Diag Imaging Result Doc PS360 ---
EXAM: CHEST-PORTABLE HISTORY: on vent TECHNIQUE: Portable chest single view COMPARISON: 11/15/2018 FINDINGS: Endotracheal and nasogastric tubes remain in good position. The small bilateral pleural effusions with underlying atelectasis and/or infiltrates. Heart is not enlarged. IMPRESSION: Stable chest. Electronically signed by Kip Wilkerson 11/16/2018 6:55 AM
[2018-11-16] MEDS ORDERED: LEVAQUIN 250 MG/D5W 250 MG/50 ML IVPB IV SCH (08:00)
[2018-11-16] MEDS: LOVENOX SUBQ SCH (08:48)
[2018-11-16] MEDS: ASPIRIN EC PO SCH (09:14)
[2018-11-16] MEDS: COREG PO SCH (09:14)
[2018-11-16] MEDS: CULTURELLE PO SCH (09:15)
[2018-11-16] MEDS: NEURONTIN PO SCH ×3 (09:15→21:11)
[2018-11-16] MEDS: COZAAR PO SCH (09:15)
--- NOTE | 2018-11-16 10:07 | EKG Report ---
Test Performed on : 11/14/2018 04:47:30 AM Test Reason : irregular tachycardia Blood Pressure : / mmHG Vent. Rate : 130 BPM Atrial Rate : 138 BPM P-R Int : 000 ms QRS Dur : 078 ms QT Int : 314 ms P-R-T Axes : 000 -17 055 degrees QTc Int : 462 ms Atrial fibrillation. with rapid ventricular response. with premature ventricular or aberrantly conduc amarilis complexes. Minimal voltage criteria for LVH, may be normal variant Inferior infarct , age undetermined Cannot rule out Anterior infarct , age undetermined Abnormal ECG When compared with ECG of 13-NOV-2018 11:11, (Unconfirmed) Atrial fibrillation. has replaced Sinus rhythm. Non-specific change in ST segment in Inferior leads Confirmed by Wagner Cespedes MD ([id number]) on 11/29/2018 1:33:20 PM
--- NOTE | 2018-11-16 10:14 | PROGRESS NOTE ---
DATE: 11/16/2018 SUBJECTIVE: The patient is sedated and intubated. The patient is still requiring vasopressors; in this case, she is requiring 1 mcg of Levophed. No other issues noted. OBJECTIVE: Vitals: Temperature 97.7 degrees, heart rate 89, respiratory rate 14, blood pressure 131/52, with MAP of 69, O2 saturation 94% on 50% FiO2. General Examination: This is a chronically ill-looking, 88-year-old, female lying in bed, in no acute distress. Sedated and intubated. Neck: No JVD noted. No carotid bruits. No lymphadenopathy. No thyromegaly. Cardiovascular Examination: S1 and S2 heard. No murmurs, gallops, or rubs. Regular rate and rhythm. Respiratory Examination: Clear bilaterally to auscultation. No work of breathing or using accessory muscles. Abdomen: There is a surgical scar covered by a dressing. There is an ileostomy bag with no drainage, in the right side. The abdomen is soft, apparently nontender to palpation. Bowel sounds present. No organomegaly. Extremities: No clubbing, cyanosis, or edema. Peripheral pulses present in both legs. Neurological Examination: The patient is sedated and intubated. Laboratory Data: White cell count 8.9, hemoglobin 10.9, hematocrit 32.4, platelets 121,000. ABG shows pH 7.28, pCO2 33, and PO2 129. BMP shows sodium 148, with normal creatinine, chloride 120. ASSESSMENT/PLAN: 1. Toxic megacolon, status post total abdominal colectomy and ileostomy. Dr. Silveira from general surgery is following this patient. Apparently, there is no drainage from the ileostomy tube. At this point, we will continue monitoring this patient in the intensive care unit. 2. Acute respiratory failure, on the ventilator. The patient is still requiring FiO2 of 50%. At this point, we will leave the management of the ventilator to Dr. Noel from pulmonary. 3. Septic shock secondary to Clostridium difficile colitis. We are slowly decreasing the amount of Levophed. Upon my examination this morning, she was requiring 1 mcg of Levophed. I think we are going to be ready to stop this medication shortly today. 4. Hyperlipidemia. The patient is not able to take anything by mouth. 5. Paroxysmal atrial fibrillation. At this point, the patient continues to be in sinus rhythm. 6. Disposition. We will continue to monitor this patient closely here in the intensive care unit. cc: Donny Muller MD
--- NOTE | 2018-11-16 10:26 | EKG Report ---
Test Performed on : 11/14/2018 08:30:35 AM Test Reason : ER Blood Pressure : / mmHG Vent. Rate : 135 BPM Atrial Rate : 113 BPM P-R Int : 000 ms QRS Dur : 080 ms QT Int : 382 ms P-R-T Axes : 000 -09 078 degrees QTc Int : 573 ms Supraventricular tachycardia. Nonspecific ST and T wave abnormality Abnormal ECG When compared with ECG of 14-NOV-2018 04:47, (Unconfirmed) Sinus rhythm. has replaced Atrial fibrillation. ST elevation now present in Inferior leads Non-specific change in ST segment in Lateral leads Confirmed by Wagner Cespedes MD ([id number]) on 11/29/2018 1:33:55 PM
[2018-11-16] MEDS ORDERED: DIPRIVAN 1% 1,000 MG/100 ML BOTTLE ONE (14:47)
[2018-11-16] MEDS: DIPRIVAN 1% 1,000 MG/100 ML BOTTLE IV SCH ×2 (14:53→19:41)
[2018-11-16] MEDS: LOPRESSOR IV SCH ×2 (14:55→21:11)
[2018-11-16] MEDS ORDERED: SODIUM BICARBONATE 8.4% 50 MEQ in D5W 1,000 ML IV SCH ×2 (16:00→18:00)
[2018-11-16] MEDS: CLINIMIX E 4.25%-5% SOLUTION 1,000 ML IV SCH (17:20)
[2018-11-16] MEDS: LEVAQUIN 250 MG/D5W 250 MG/50 ML IVPB IV SCH (17:20)
[2018-11-16] MEDS: LASIX IV SCH (17:20)
--- NOTE | 2018-11-16 17:23 | GENERAL SURGERY PROGRESS NOTE ---
DATE: 11/16/2018 Ms Link is now sedated on the ventilator. She is afebrile. Heart rate is 87, blood pressure is 144/58. Her stoma is viable. LABS: White count is 8900, hemoglobin 10.9, hematocrit 34, pH 7.28, pCO2 33, PO2 129 on 60% FiO2. She has been switched to bicarbonate IV fluid which I agree with. Also agree with the Clinimix. We will get Nign is see her about her stoma at some point. Will recheck her labs in the morning. cc: Clif Silveira MD
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
[2018-11-16] MEDS: MEVACOR PO SCH (21:11)
[2018-11-17] MEDS: LASIX IV SCH ×3 (01:17→17:03)
[2018-11-17] MEDS: DIPRIVAN 1% 1,000 MG/100 ML BOTTLE IV SCH ×3 (01:17→15:39)
[2018-11-17] MEDS: FLAGYL 500 MG/NS 500 MG/100 ML IVPB IV SCH ×4 (01:34→21:33)
[2018-11-17] MEDS: LOPRESSOR IV SCH ×5 (01:34→21:34)
[2018-11-17] MEDS: VANCOCIN PO SCH (01:43)
[2018-11-17] MEDS: XOPENEX NEB INH SCH ×6 (03:03→23:30)
[2018-11-17 04:44] LABS: ALLEN TEST YES; BE 3.5 mmoll (-3.0-3.0); BLOOD TYPE ARTERIAL; HCO3-(ACT) 27.7 mmoll (20.0-26.0); METHB 1.3 % (0.0-1.5); O2(CT) 17.2 mL/dL (15.0-23.0); O2HB 96.8 % (95.0-99.0); PCO2(98.6) 26 mmHg (35-45); PO2(98.6) 117 mmHg (60-100); SAMPLE BLOOD; SAO2 99.3 % (95.0-100.0); SRATE 12 BPM; THB 12.5 g/dL (11.5-17.4); TVOL 600 mL
[2018-11-17 04:45] LABS: MODALITY VENTILATOR; pH(98.6) 7.58 (7.35-7.45)
[2018-11-17 04:53] LABS: BASO# 0.01 X1000 (0.0-0.2); BASO% 0.1 % (0.0-0.8); EOS# 0.02 X1000 (0.0-0.7); EOS% 0.3 % (0.0-10.0); HEMATOCRIT 35.6 % (37.0-47.0); IMM GRAN# 0.06 X1000 (0.0-0.04); IMM GRAN% 0.8 % (0.0-0.5); LYMPH# 0.39 X1000 (1.2-3.4); LYMPH% 5.5 % (20.5-51.1); MCH 29.6 PG (27-31); MCHC 33.7 g/dL (33-37); MCV 87.7 FL (81-99); MONO# 0.48 X1000 (0.11-0.59); MONO% 6.8 % (1.7-9.3); MPV 12.1 FL (7.4-10.4); NEUT# 6.11 X1000 (1.4-6.5); NEUT% 86.5 % (42.2-75.2); PLT 114 X1000 (130-400); RBC 4.06 XMIL (4.2-5.4); RDW 15.4 % (11.5-14.5); WBC 7.07 X1000 (4.8-10.8)
[2018-11-17 05:49] LABS: AGAP 11; BUN 24 mg/dL (8-22); CALCIUM 7.8 mg/dL (8.8-10.2); CHLORIDE 113 mmol/L (98-107); COSMO 304; CREATININE 0.7 mg/dL (0.5-0.9); ESTIMATED GFR > 60; GLUCOSE 274 mg/dL (70-104); SODIUM 146 mmol/L (136-145); TCO2 22 mmol/L (25-35)
[2018-11-17 05:50] LABS: POTASSIUM 2.5 mmol/L (3.5-5.1)
[2018-11-17] MEDS: CLINIMIX E 4.25%-5% SOLUTION 1,000 ML IV SCH ×2 (07:21→21:33)
--- NOTE | 2018-11-17 07:26 | Diag Imaging Result Doc PS360 ---
CHEST-PORTABLE - 11/17/2018 INDICATION: respiratory failure COMPARISON: 11/16/2018 FINDINGS: Support tubes are stable. Heart size and pulmonary vascularity remains normal. Stable bibasilar infiltrates or effusions. No new abnormalities. IMPRESSION: No change from prior. Electronically signed by Mike Kingston 11/17/2018 7:24 AM
[2018-11-17] MEDS ORDERED: POTASSIUM CHLORIDE 60 MEQ in D5W 500 ML IV SCH (08:00)
[2018-11-17] MEDS: LOVENOX SUBQ SCH (08:25)
[2018-11-17 08:39] LABS: INR 1.1; PROTIME 15.1 Seconds (11.0-16.0)
[2018-11-17] MEDS: ASPIRIN EC PO SCH (09:04)
[2018-11-17] MEDS: COREG PO SCH (09:05)
[2018-11-17] MEDS: NEURONTIN PO SCH ×2 (09:05→15:32)
[2018-11-17] MEDS: CULTURELLE PO SCH (09:05)
[2018-11-17] MEDS: COZAAR PO SCH (09:05)
[2018-11-17] MEDS: D5W 1,000 ML IV SCH (09:36)
--- NOTE | 2018-11-17 09:37 | PULMONOLOGY PROGRESS NOTE ---
DATE: 11/17/2018 SUBJECTIVE: The patient remains sedated. Propofol is currently on hold for a sedation vacation. OBJECTIVE: Vital Signs: The patient has been afebrile for the last 24 hours. Blood pressure 106/44 without vasopressors, heart rate 92, respiratory rate 17, oxygen saturation 96% on mechanical ventilation. HEENT: Pupils appear equal. Oropharynx is dry. Neck: Supple. Chest: Reveals diminished breath sounds in both lung bases. Cardiac Examination: S1, S2. Abdomen: Soft. The ostomy appears viable. Extremities: Reveal 1+ peripheral edema. Laboratories: White blood count 7.07, hemoglobin 12.0, platelet count is 114,000. Sodium 146, potassium 2.5, chloride 113, bicarbonate 22, BUN 24, creatinine 0.7. Chest x-ray reveals atelectasis of the left base with bilateral effusions, right greater than the left. IMPRESSION: An 88-year-old, status post emergency surgery for toxic megacolon and progressive acidosis who has: 1. Acute hypoxemic respiratory failure. 2. Bilateral pleural effusions. 3. Hyperchloremic metabolic acidosis with improvement over the last 24 hours. 4. Hypernatremia. 5. Bilateral pleural effusions. 6. Protein calorie malnutrition. RECOMMENDATIONS: 1. Initiate spontaneous breathing trial this morning to evaluate the patient's potential for extubation. 2. Attempt to diurese today if tolerated. 3. Additional fluid management. We will discontinue sodium bicarbonate drip and place on D5W. 4. Continue current antibiotic regimen. 5. End of life issues have been addressed per code status review. TIME SPENT FOR CRITICAL CARE: 30 plus minutes. cc: Ever Noel MD
[2018-11-17 11:19] LABS: ALLEN TEST YES; BE 3.9 mmoll (-3.0-3.0); BLOOD TYPE ARTERIAL; HCO3-(ACT) 27.9 mmoll (20.0-26.0); METHB 0.5 % (0.0-1.5); O2(CT) 19.6 mL/dL (15.0-23.0); O2HB 96.1 % (95.0-99.0); PCO2(98.6) 30 mmHg (35-45); PO2(98.6) 79 mmHg (60-100); SAMPLE BLOOD; SAO2 99.8 % (95.0-100.0); THB 14.5 g/dL (11.5-17.4); pH(98.6) 7.54 (7.35-7.45)
[2018-11-17 11:24] LABS: MODALITY VENTILATOR
--- NOTE | 2018-11-17 11:32 | GENERAL SURGERY PROGRESS NOTE ---
DATE: 11/17/2018 SUBJECTIVE: Ms. Link is still sedated. OBJECTIVE: Vitals: She is afebrile. Heart rate is 107. Blood pressure is 97/50. Abdomen: Her stoma appears viable. INPUT AND OUTPUT: Intake 6444, output 5800. LABORATORY: White count 7000, hemoglobin 12, hematocrit 35. Her pH is up to 7.58. PCO2 26. Sodium 146, potassium 2.5, chloride 113, bicarb 22. ASSESSMENT: She is stable. Hopefully, she will be able to wean from the ventilator today. Her stoma looks viable. She is getting potassium replacement. Continue with current support. cc: Clif Silveira MD
[2018-11-17] MEDS: HUMALOG SUBQ SCH ×3 (12:00→21:34)
[2018-11-17] MEDS ORDERED: NS 250 ML ONE (12:26)
[2018-11-17] MEDS: LEVAQUIN 250 MG/D5W 250 MG/50 ML IVPB IV SCH (15:39)
[2018-11-18] MEDS: MEVACOR PO SCH ×3 (00:37→20:24)
[2018-11-18] MEDS: NEURONTIN PO SCH ×4 (00:38→20:25)
[2018-11-18] MEDS: LASIX IV SCH ×3 (02:19→20:23)
[2018-11-18] MEDS: FLAGYL 500 MG/NS 500 MG/100 ML IVPB IV SCH ×4 (02:19→20:23)
[2018-11-18] MEDS: DIPRIVAN 1% 1,000 MG/100 ML BOTTLE IV SCH (02:20)
[2018-11-18] MEDS: XOPENEX NEB INH SCH ×6 (03:30→23:43)
[2018-11-18] MEDS: LOPRESSOR IV SCH ×4 (03:46→20:23)
[2018-11-18 05:14] LABS: ALLEN TEST YES; BE 8.2 mmoll (-3.0-3.0); BLOOD TYPE ARTERIAL; HCO3-(ACT) 31.3 mmoll (20.0-26.0); METHB 1.2 % (0.0-1.5); O2(CT) 19.1 mL/dL (15.0-23.0); O2HB 96.9 % (95.0-99.0); PCO2(98.6) 30 mmHg (35-45); PO2(98.6) 120 mmHg (60-100); SAMPLE BLOOD; SAO2 99.1 % (95.0-100.0); SRATE 8 BPM; THB 13.9 g/dL (11.5-17.4); TVOL 600 mL
[2018-11-18 05:15] LABS: MODALITY VENTILATOR
[2018-11-18] MEDS: D5W 1,000 ML IV SCH (05:40)
[2018-11-18 06:17] LABS: BASO# 0.01 X1000 (0.0-0.2); BASO% 0.1 % (0.0-0.8); EOS# 0.04 X1000 (0.0-0.7); EOS% 0.5 % (0.0-10.0); HEMATOCRIT 36.7 % (37.0-47.0); HEMOGLOBIN 12.7 g/dL (12.0-16.0); IMM GRAN# 0.08 X1000 (0.0-0.04); IMM GRAN% 1.1 % (0.0-0.5); LYMPH# 0.56 X1000 (1.2-3.4); LYMPH% 7.4 % (20.5-51.1); MCH 29.5 PG (27-31); MCHC 34.6 g/dL (33-37); MCV 85.2 FL (81-99); MONO# 0.39 X1000 (0.11-0.59); MONO% 5.2 % (1.7-9.3); MPV 12.7 FL (7.4-10.4); NEUT# 6.45 X1000 (1.4-6.5); NEUT% 85.7 % (42.2-75.2); PLT 96 X1000 (130-400); RBC 4.31 XMIL (4.2-5.4); RDW 14.9 % (11.5-14.5); WBC 7.53 X1000 (4.8-10.8)
[2018-11-18 06:41] LABS: AGAP 14; ALB/GLOB RATIO 0.9; ALBUMIN 2.4 g/dL (3.5-5.0); ALKALINE PHOSPHATASE 164 U/L (32-104); BUN 23 mg/dL (8-22); CALCIUM 7.5 mg/dL (8.8-10.2); CHLORIDE 99 mmol/L (98-107); COSMO 292; CREATININE 0.7 mg/dL (0.5-0.9); ESTIMATED GFR > 60; GLUCOSE 259 mg/dL (70-104); GOT 24 U/L (10-30); GPT 16 U/L (10-36); POTASSIUM 2.8 mmol/L (3.5-5.1); SODIUM 140 mmol/L (136-145); TCO2 27 mmol/L (25-35); TOTAL BILIRUBIN 0.33 mg/dL (0.20-1.00)
[2018-11-18 06:43] LABS: MAGNESIUM 1.5 mg/dL (1.5-2.7); PHOSPHORUS 1.8 mg/dL (2.7-4.5)
[2018-11-18] MEDS: HUMALOG SUBQ SCH ×4 (06:50→20:43)
[2018-11-18 07:10] LABS: LYMPHS 12 % (21-51); NRBC 1 % (0-0); SEGS 88 % (42-75)
--- NOTE | 2018-11-18 07:24 | Diag Imaging Result Doc PS360 ---
CHEST-PORTABLE - 11/18/2018 INDICATION: respiratory failure COMPARISON: 11/17/2018 FINDINGS: There is a new left PICC line with the catheter tip in the mid SVC. Stable endotracheal tube and nasogastric tube. Stable small bilateral pleural effusions. Heart size remains top normal. No new or focal infiltrates. IMPRESSION: New right PICC line in good position. Otherwise no change from prior. Electronically signed by Mike Kingston 11/18/2018 7:22 AM
[2018-11-18] MEDS: LOVENOX SUBQ SCH (08:05)
--- NOTE | 2018-11-18 08:10 | PROGRESS NOTE ---
DATE: 11/18/2018 SUBJECTIVE: As per nursing staff, patient has been a little bit restless. She is not requiring any vasopressors. She looks more edematous today. OBJECTIVE: Vitals Signs: Temperature 99.3, heart rate 100, respiratory rate 18, blood pressure 113/77, O2 saturation 97% on mechanical ventilator at FiO2 of 40%. General Examination: This is a chronically ill-appearing, 88-year-old, female lying in bed, sedated and intubated. Neck: No JVD noted. No carotid bruits. No lymphadenopathy. No thyromegaly. Cardiovascular Examination: S1 and S2 heard. No murmurs, gallops, or rubs. Regular rate and rhythm. Respiratory Examination: Clear bilaterally to auscultation. No work of breathing or using accessory muscles. Abdomen: Surgical scar covered by dressing. There is an ileostomy bag noted in the right side. The abdomen is a little bit distended but apparently nontender to palpation. Bowel sounds present. No organomegaly. Extremities: No clubbing or cyanosis. Mild pitting edema in both lower extremities. Neurological Examination: The patient is sedated and intubated. Laboratory Data: White cell count 7.53, hemoglobin 12.7, hematocrit 36.7, platelets 96,000. ABG that shows pH 7.60, PCO2 of 30, PO2 of 120. BMP remarkable for potassium 2.8, calcium 7.5, magnesium 1.5. ASSESSMENT AND PLAN: 1. Acute hypoxemic respiratory failure. Patient is currently on the ventilator. FiO2 is 40% on ventilator settings. Ventilator settings are okay but, unfortunately, she continues to be with respiratory alkalosis, breathing over the ventilator. Dr. Noel from pulmonary is following this patient. We will follow recommendations. 2. Bilateral pleural effusion. This patient has been receiving Lasix, day before yesterday 80 mg twice daily and also yesterday 40 mg intravenous every 8 hours. I think this patient needs to continue with this medication. We will start this patient on 40 mg of Lasix intravenous twice daily. 3. Septic shock secondary to Clostridium difficile colitis. Septic shock has resolved. Patient is not on vasopressors. The patient's blood pressure is better. We will continue monitoring this patient closely. 4. Paroxysmal atrial fibrillation. The patient is in sinus rhythm, although sometimes heart rate gets higher so at this point, we are using metoprolol 5 mg intravenously every 6 hours as needed to a heart rate greater than 100. We will continue to monitor this patient. 5. Protein calorie malnutrition. Patient is receiving Clinimix as per pulmonary recommendation. 6. Hypernatremia. It is much better. In considering signs of volume overload, then we are going to stop fluids. 7. Hypokalemia. We are going to replenish potassium. We have checked a magnesium and it is okay. 8. Toxin megacolon, status post total colectomy and ileostomy. Dr. Silveira is following this patient. From that standpoint, patient is stable. 8. Disposition. We will continue to monitor this patient in the intensive care unit. Considering her age and comorbidities, her prognosis is not good. cc: Donny Muller MD MTDD
[2018-11-18] MEDS: POTASSIUM CHLORIDE 60 MEQ in NS 500 ML IV SCH ×2 (09:26→16:05)
[2018-11-18] MEDS ORDERED: APRESOLINE IV PRN (10:02)
[2018-11-18 10:45] LABS: ALLEN TEST YES; BE 7.3 mmoll (-3.0-3.0); BLOOD TYPE ARTERIAL; HCO3-(ACT) 30.7 mmoll (20.0-26.0); PCO2(98.6) 34 mmHg (35-45); PO2(98.6) 124 mmHg (60-100); SAMPLE BLOOD; pH(98.6) 7.55 (7.35-7.45)
[2018-11-18 10:46] LABS: MODALITY VENTILATOR
[2018-11-18] MEDS: CLINIMIX E 4.25%-5% SOLUTION 1,000 ML IV SCH ×2 (11:09→22:31)
[2018-11-18] MEDS ORDERED: LASIX IV ONE (12:00)
[2018-11-18] MEDS: ASPIRIN EC PO SCH (12:13)
[2018-11-18] MEDS: CULTURELLE PO SCH (12:14)
[2018-11-18] MEDS: COREG PO SCH (12:15)
[2018-11-18] MEDS: COZAAR PO SCH (12:15)
[2018-11-18] MEDS: LEVAQUIN 250 MG/D5W 250 MG/50 ML IVPB IV SCH (16:05)
[2018-11-18] MEDS: DILAUDID IV PRN (17:00)
--- NOTE | 2018-11-18 19:05 | GENERAL SURGERY PROGRESS NOTE ---
DATE: 11/18/2018 SUBJECTIVE: She is now 3 days after total abdominal colectomy and ileostomy. OBJECTIVE: Temperature is 99.3 degrees, heart rate 112, blood pressure 112/83. She has been extubated. She is awake, but quite weak. Intake 3628; output 5500. She is putting some liquid into her bag. Her stoma looks viable. White count 7500, hemoglobin 12.7. Potassium is 2.8. ASSESSMENT: She seems to be improving, now extubated. Her stoma looks viable. She is on Clinimix for nourishment. She will continue receiving potassium supplementation as well. No new recommendations. cc: Clif Silveira MD
--- NOTE | 2018-11-18 19:38 | PULMONOLOGY PROGRESS NOTE ---
DATE: 11/18/2018 SUBJECTIVE: The patient is on mechanical ventilation. She is arousable. She opens her eyes but does not follow commands. OBJECTIVE: Vital Signs: Blood pressure 166/80, heart rate 94, respiratory rate 19, oxygen saturation 98%. HEENT: Pupils are equal and reactive. Oropharynx appears clear. Neck: Supple. Chest: Reveals diminished breath sounds bilaterally. Cardiac exam: S1 and S2. Abdomen: Soft. Ostomy appears to be viable. No bowel sounds present. Extremities: Cool to the touch. LABORATORIES: Sodium 140, potassium 2.8, chloride 99, bicarbonate 27, BUN 23, creatinine 0.7. White blood count 7.53, hemoglobin 12.7, platelet 96,000. Chest x-ray reveals bilateral pleural effusions. IMPRESSION: 88-year-old, status post emergent surgery for toxic megacolon due to C difficile colitis, with: 1. Acute hypoxemic respiratory failure. 2. Bilateral pleural effusions. 3. Hyperchloremic metabolic acidosis. 4. Protein calorie malnutrition. RECOMMENDATIONS: 1. Continue spontaneous breathing trial with anticipation of extubation later today. 2. Diuresis as tolerated. 3. Continue Clinimix. 4. The patient's prognosis is guarded to poor given her age and comorbidities. End-of-life discussions have been addressed. Time spent in critical care management 30+ minutes. cc: Ever Noel MD
[2018-11-19] MEDS: LOPRESSOR IV SCH ×4 (01:55→19:59)
[2018-11-19] MEDS: FLAGYL 500 MG/NS 500 MG/100 ML IVPB IV SCH ×4 (01:55→19:20)
[2018-11-19 05:15] LABS: BASO# 0.02 X1000 (0.0-0.2); BASO% 0.3 % (0.0-0.8); EOS# 0.01 X1000 (0.0-0.7); EOS% 0.2 % (0.0-10.0); HEMATOCRIT 35.7 % (37.0-47.0); IMM GRAN% 1.7 % (0.0-0.5); LYMPH# 0.71 X1000 (1.2-3.4); LYMPH% 11.9 % (20.5-51.1); MCH 29.1 PG (27-31); MCHC 33.6 g/dL (33-37); MCV 86.7 FL (81-99); MONO# 0.43 X1000 (0.11-0.59); MONO% 7.2 % (1.7-9.3); MPV 12.5 FL (7.4-10.4); NEUT% 78.7 % (42.2-75.2); PLT 92 X1000 (130-400); RBC 4.12 XMIL (4.2-5.4); WBC 5.97 X1000 (4.8-10.8)
[2018-11-19 05:16] LABS: ALLEN TEST YES; BE 8.3 mmoll (-3.0-3.0); BLOOD TYPE ARTERIAL; HCO3-(ACT) 31.4 mmoll (20.0-26.0); METHB 1.5 % (0.0-1.5); O2(CT) 17.9 mL/dL (15.0-23.0); O2HB 96.3 % (95.0-99.0); PCO2(98.6) 39 mmHg (35-45); PO2(98.6) 110 mmHg (60-100); SAMPLE BLOOD; SAO2 98.7 % (95.0-100.0); THB 13.1 g/dL (11.5-17.4); pH(98.6) 7.52 (7.35-7.45)
[2018-11-19 05:18] LABS: MODALITY BI PAP
[2018-11-19 05:44] LABS: AGAP 9; ALB/GLOB RATIO 0.8; ALBUMIN 2.1 g/dL (3.5-5.0); ALKALINE PHOSPHATASE 141 U/L (32-104); BUN 30 mg/dL (8-22); CALCIUM 7.2 mg/dL (8.8-10.2); CHLORIDE 96 mmol/L (98-107); COSMO 285; CREATININE 0.6 mg/dL (0.5-0.9); ESTIMATED GFR > 60; GLUCOSE 224 mg/dL (70-104); GOT 20 U/L (10-30); GPT 15 U/L (10-36); POTASSIUM 3.9 mmol/L (3.5-5.1); SODIUM 136 mmol/L (136-145); TCO2 31 mmol/L (25-35); TOTAL BILIRUBIN 0.28 mg/dL (0.20-1.00); TOTAL PROTEIN 4.8 g/dL (6.3-8.3)
[2018-11-19] MEDS: HUMALOG SUBQ SCH ×4 (06:16→20:00)
--- NOTE | 2018-11-19 07:27 | Diag Imaging Result Doc PS360 ---
EXAM: CHEST-PORTABLE 11/19/2018 HISTORY: respiratory failure TECHNIQUE: AP portable at 0527 COMMENT: There is an NG tube with its tip below the diaphragm. There is a PICC line on the right with its tip in the superior vena cava. There is a skin fold artifact over the right apex. There is no evidence of pneumothorax. There is retrocardiac opacity in the obscuration of the left hemidiaphragm. The right hemidiaphragm is better defined than on 11/18/2018. IMPRESSION: Improved pulmonary edema. Residual atelectasis versus pneumonia left lower lobe with left pleural effusion. Improved right pleural effusion. Electronically signed by Jonathon Huizar 11/19/2018 7:25 AM
[2018-11-19] MEDS ORDERED: POTASSIUM PHOSPHATE IV ONE (07:49)
[2018-11-19] MEDS ORDERED: NS IV ONE (07:49)
[2018-11-19] MEDS: LOVENOX SUBQ SCH (07:59)
[2018-11-19] MEDS: LASIX IV SCH ×2 (07:59→20:01)
[2018-11-19] MEDS: XOPENEX NEB INH SCH ×6 (08:14→23:30)
--- NOTE | 2018-11-19 08:18 | PROGRESS NOTE ---
DATE: 11/19/2018 INTERVAL HISTORY: Yesterday, the patient was extubated and was kept on BiPAP. She has been tolerating BiPAP well. SUBJECTIVE: The patient is drowsy, but arousable, follows simple commands like opening eyes and moving. However, because of BiPAP, she is not able to communicate, but does not appear in any acute distress currently. PHYSICAL EXAMINATION: Vital Signs: She has had fever of 100.2 yesterday, pulse of 95, respiratory rate 18, blood pressure 150/68, saturating 100% on BiPAP, which is 50%. Input and output suggests -1.8 L yesterday. Cumulative input and output suggests she is positive 6 L. General: Appears very lean and thin, not in any acute distress. HEENT: Bilateral pupils are equal, reacting to light. Lungs: Air entry bilaterally equal. No wheeze, rhonchi, crackles. Cardiovascular: S1, S2 normal. No murmur, rub, or gallop. Abdomen: Soft. There is a midline incision extending from xiphoid sternum to pubic symphysis, which is dressed and not soaked. On the right lower quadrant, she had ileostomy with greenish output. She did not have undue abdominal tenderness. She has Lyle catheter, right PICC line and NG tube. She has diffuse edema affecting bilateral upper and lower extremities which makes DP pulses difficult to palpate. LABORATORY DATA: Normal hemoglobin and hematocrit. She continues to have mild thrombocytopenia. Her ABG suggest a PO2 of 110 on 40% BiPAP with pH of 7.5. Her hypokalemia has resolved. She continues to have hypophosphatemia, which I will replete today. MICROBIOLOGY: No new microbiological data. Her Clostridium difficile antigen was negative. ASSESSMENT AND PLAN: 1. Acute hypoxemic respiratory failure postoperatively. The patient was extubated on 11/18/2018, and tolerating bilevel positive airway pressure well. I will consider giving her some bilevel positive airway pressure break today. Pulmonology on board. Appreciate their recommendation. Continue intravenous Lasix for small bilateral pleural effusion, which is improving, and generalized anasarca. 2. Septic shock due to acute diffuse colitis with suspected Clostridium difficile, though stool studies have been negative. Her septic shock has resolved. She is not on any pressors. Continue the patient on levofloxacin and Flagyl. She is now status post total colectomy and end ileostomy on 11/15/2018. Surgery is on board. 3. Protein calorie malnutrition with recent colectomy and inability to take by mouth considering poor respiratory status. Continue intravenous Clinimix. I appreciate Surgery recommendation about starting oral nutrition as tolerated. 4. Fever with intermittent hypotension. Her use of antihypertensive medications could also be contributing to hypotension due to drug use, which I have stopped, including losartan and Coreg. Also decreasing the Lasix dose as tolerated. I will discuss with the nursing team about changing the Lyle catheter if it has not been changed recently. 5. Electrolyte abnormalities, including hypokalemia, which is resolved; hypernatremia has resolved; hypophosphatemia, I will replete. 6. Disposition. The patient's condition remains critical. TIME SPENT: More than 30 minutes of critical care time was spent in taking care of this patient. I will continue to monitor this patient in ICU. Plan of care discussed with the patient. I will keep the family informed. cc: Chet Rowe MD MTDD
[2018-11-19] MEDS: CULTURELLE PO SCH (09:11)
[2018-11-19] MEDS: ASPIRIN EC PO SCH (09:11)
[2018-11-19] MEDS: DILAUDID IV PRN ×2 (10:02→19:18)
[2018-11-19] MEDS: CLINIMIX E 4.25%-5% SOLUTION 1,000 ML IV SCH ×2 (10:59→12:55)
--- NOTE | 2018-11-19 11:37 | GENERAL SURGERY PROGRESS NOTE ---
DATE: 11/19/2018 SUBJECTIVE: She is now 4 days after abdominal colectomy. She is extubated and seems to be tolerating that satisfactorily. OBJECTIVE: Heart rate 103, blood pressure is 116/68. Intake 4367, output 4285. She is starting to put liquid into her ileostomy. DIAGNOSTIC STUDIES: White count is 5900, hemoglobin 12 hematocrit 35. PH 7.52, pCO2 of 30, and PO2 of 110 on BiPAP. BUN 30, creatinine 0.6. PLAN: The plan is to allow her to have some liquids so we will clamp her NG tube. cc: Clif Silveira MD
--- NOTE | 2018-11-19 15:48 | EKG Report ---
Test Performed on : 11/18/2018 3:42:42 PM Test Reason : CCU. no order in [place] Blood Pressure : / mmHG Vent. Rate : 134 BPM Atrial Rate : 134 BPM P-R Int : 176 ms QRS Dur : 070 ms QT Int : 380 ms P-R-T Axes : 055 -39 047 degrees QTc Int : 567 ms Sinus tachycardia. with fusion complexes Left axis deviation Inferior infarct , age undetermined Abnormal ECG When compared with ECG of 14-NOV-2018 08:30, (Unconfirmed) fusion complexes are now present Inferior infarct is now present ST elevation now present in Lateral leads Nonspecific T wave abnormality, improved in Lateral leads Confirmed by Brenda JOHNSON, Willis ([id number]) on 11/20/2018 11:35:11 AM
[2018-11-19] MEDS: LEVAQUIN 250 MG/D5W 250 MG/50 ML IVPB IV SCH (16:05)
--- NOTE | 2018-11-19 18:27 | PULMONOLOGY PROGRESS NOTE ---
DATE: 11/19/2018 SUBJECTIVE: The patient is awake and alert. She is interactive. She is very weak and has a weak cough. OBJECTIVE: The patient is afebrile with maximum temperature in the last 24 hours of 100.2 degrees, BP 101/53, heart rate 91, respiratory rate 18, oxygen saturation 100%. HEENT: Pupils are equal and reactive. Oropharynx is clear. Neck is supple., Chest reveals shallow breath sounds bilaterally with crackles in the lung bases. Cardiac: S1, S2. Abdomen is soft with viable ostomy. Extremities are cool to the touch with 1+ peripheral edema. DIAGNOSTIC STUDIES: Chest x-ray reveals decreased pulmonary edema with decreased right effusion with revealed residual pneumonia/effusion at the left base. White blood count 5.97, hemoglobin 12, platelet count 92,000. Sodium 136, potassium 3.9, chloride 96, bicarbonate 31, BUN 30, creatinine 0.6. Arterial blood gas: PH 7.52, pCO2 of 39, pO2 of 110. IMPRESSION: An 88-year-old with: 1. Acute hypoxemic respiratory failure. 2. Bilateral pleural effusions. 3. Protein-calorie malnutrition. 4. Status post emergent colectomy for Clostridium difficile colitis and toxic megacolon. DISCUSSION: An 88-year-old with problems outlined above. She remains weak. Her prognosis is guarded. RECOMMENDATIONS: 1. Continue Clinimix. Attempt p.o. intake as outlined by Dr. Silveira. 2. Continue bronchial hygiene. 3. Cycle BiPAP as needed. 4. Prognosis remains guarded, given her age and generalized weakness. cc: Ever Noel MD
[2018-11-19] MEDS: MEVACOR PO SCH (20:01)
[2018-11-20] MEDS: CLINIMIX E 4.25%-5% SOLUTION 1,000 ML IV SCH ×2 (01:15→14:31)
[2018-11-20] MEDS: LOPRESSOR IV SCH ×2 (01:15→08:25)
[2018-11-20] MEDS: FLAGYL 500 MG/NS 500 MG/100 ML IVPB IV SCH ×4 (01:15→20:37)
[2018-11-20] MEDS: DILAUDID IV PRN ×3 (01:27→14:31)
[2018-11-20] MEDS: XOPENEX NEB INH SCH ×6 (03:30→23:30)
[2018-11-20 05:33] LABS: ALLEN TEST YES; BE 10.2 mmoll (-3.0-3.0); BLOOD TYPE ARTERIAL; HCO3-(ACT) 32.9 mmoll (20.0-26.0); METHB 1.3 % (0.0-1.5); O2(CT) 17.1 mL/dL (15.0-23.0); O2HB 96.8 % (95.0-99.0); PCO2(98.6) 37 mmHg (35-45); PO2(98.6) 138 mmHg (60-100); SAMPLE BLOOD; SAO2 99.5 % (95.0-100.0); THB 12.4 g/dL (11.5-17.4)
[2018-11-20 05:34] LABS: MODALITY CANNULA; pH(98.6) 7.56 (7.35-7.45)
[2018-11-20 06:08] LABS: MAGNESIUM 1.6 mg/dL (1.5-2.7); PHOSPHORUS 2.9 mg/dL (2.7-4.5)
[2018-11-20 06:09] LABS: BASO# 0.02 X1000 (0.0-0.2); BASO% 0.4 % (0.0-0.8); EOS# 0.11 X1000 (0.0-0.7); EOS% 2.3 % (0.0-10.0); HEMATOCRIT 35.1 % (37.0-47.0); HEMOGLOBIN 11.8 g/dL (12.0-16.0); IMM GRAN# 0.04 X1000 (0.0-0.04); IMM GRAN% 0.8 % (0.0-0.5); LYMPH# 0.59 X1000 (1.2-3.4); LYMPH% 12.1 % (20.5-51.1); MCH 29.2 PG (27-31); MCHC 33.6 g/dL (33-37); MCV 86.9 FL (81-99); MONO# 0.27 X1000 (0.11-0.59); MONO% 5.5 % (1.7-9.3); MPV 11.4 FL (7.4-10.4); NEUT# 3.85 X1000 (1.4-6.5); NEUT% 78.9 % (42.2-75.2); PLT 122 X1000 (130-400); RBC 4.04 XMIL (4.2-5.4); RDW 14.9 % (11.5-14.5); WBC 4.88 X1000 (4.8-10.8)
[2018-11-20 06:14] LABS: AGAP 10; ALB/GLOB RATIO 0.8; ALBUMIN 2.1 g/dL (3.5-5.0); ALKALINE PHOSPHATASE 144 U/L (32-104); BUN 29 mg/dL (8-22); CALCIUM 7.8 mg/dL (8.8-10.2); CHLORIDE 92 mmol/L (98-107); COSMO 272; CREATININE 0.5 mg/dL (0.5-0.9); ESTIMATED GFR > 60; GLUCOSE 165 mg/dL (70-104); GOT 19 U/L (10-30); GPT 14 U/L (10-36); POTASSIUM 3.6 mmol/L (3.5-5.1); SODIUM 131 mmol/L (136-145); TCO2 29 mmol/L (25-35); TOTAL BILIRUBIN 0.25 mg/dL (0.20-1.00); TOTAL PROTEIN 4.9 g/dL (6.3-8.3)
[2018-11-20] MEDS: HUMALOG SUBQ SCH ×4 (06:27→20:31)
--- NOTE | 2018-11-20 07:50 | Diag Imaging Result Doc PS360 ---
CHEST-PORTABLE - 11/20/2018 INDICATION: respiratory failure COMPARISON: 11/19/2018 FINDINGS: Support lines and tubes are stable. Stable small pleural effusions. Stable minimal, hazy atelectasis in the lung bases. No new infiltrates. Heart size is top normal. IMPRESSION: No change from prior. Electronically signed by Mike Kingston 11/20/2018 7:47 AM
[2018-11-20] MEDS: MAGNESIUM SULFATE 2 GM/S.W.I. 2 GM/50 ML IVPB IV SCH ×2 (08:24→11:08)
[2018-11-20] MEDS: KLOR-CON PO SCH ×2 (08:25→11:08)
[2018-11-20] MEDS: LASIX IV SCH (08:25)
[2018-11-20] MEDS: ASPIRIN EC PO SCH (08:25)
[2018-11-20] MEDS: CULTURELLE PO SCH (08:25)
[2018-11-20] MEDS: LOVENOX SUBQ SCH (08:26)
[2018-11-20] MEDS ORDERED: OXY IR PO PRN (09:58)
--- NOTE | 2018-11-20 10:30 | PROGRESS NOTE ---
DATE: 11/20/2018 INTERVAL HISTORY: The patient was extubated yesterday. She did not have any acute overnight events. She has been tolerating nasal cannula well. SUBJECTIVE: She is following simple commands, answering simple questions. Denies any acute complaints. I discussed with her about her clinical course and answered all of her questions. OBJECTIVE: Vital Signs: Currently, temperature of 98 degrees, pulse of 93, respiratory rate 13, blood pressure 112/57. She is saturating 97% on 2 L nasal cannula. General: She does appear very weak. HEENT: Bilateral pupils are equal, reacting to light. Lungs: Air entry bilaterally equal. No wheeze, rhonchi, or crackles. Cardiovascular: S1, S2 normal. No murmur, rub, or gallop. Abdomen: Soft. There is a midline incision extending from the xiphoid sternum pubic symphysis, which is dressed and not soaked. She has right-sided lower quadrant ileostomy with greenish output. She has mild generalized abdominal tenderness. She has Lyle catheter, right-sided PICC line and NG tube. Extremities: She has diffuse edema affecting bilateral upper and lower extremities, which makes dorsalis pedis pulses difficult to palpate. LABORATORY DATA: Suggestive of normal WBC count, normocytic anemia, thrombocytopenia, which is improving. Her pH is 7.5, bicarbonate is 32, and she is maintaining adequate oxygenation on nasal cannula. BMP suggestive of hyponatremia, hypochloremia, and elevated BUN and elevated bicarbonate. CMP is in acceptable range. No new microbiological data. IMAGING: Chest x-ray performed today suggests no change from prior. She does have minimal bilateral pleural effusion. ASSESSMENT AND PLAN: 1. Acute hypoxic respiratory failure postoperatively with bilateral pleural effusion and anasarca. She is status post extubation on 11/18/2018 and tolerating oxygenation through nasal cannula well, which I will consider decrease intravenous Lasix dose as her pleural effusions have essentially resolved. 2. Septic shock due to acute diffuse colitis with suspected C. difficile enterocolitis, though stool studies were negative. Her septic shock has resolved. Continue the patient on intravenous Flagyl and levofloxacin for a total of 14 days. She is status post total colectomy and end ileostomy on 11/15/2018. Surgery on board. 3. Paroxysmal Atrial fibrillation: I will start her on AV ginny kelley as tolerated. 3. Protein calorie malnutrition with recent colectomy and inability to take by mouth. Considering generalized weakness, continue intravenous nutrition and clear liquid diet as per surgery recommendation. 4. Fever with intermittent hypotension because of antihypertensive drug use. Her blood pressure has been stable since the last 24 hours. She has not had a fever spike. I will also discontinue Lyle catheter. 5. Hyponatremia, hypokalemia, metabolic alkalosis in the setting of Lasix use. I am repeating potassium, magnesium. I decreased the Lasix dose. I will follow up with [facility] tomorrow. Her hypophosphatemia has resolved. 6. Disposition. I will continue to monitor patient in ICU for another 24 hours. I will have physical therapy evaluation. Her condition is critical. More than 30 minutes of critical care time was spent in taking care of this patient. Considering her age and multiple comorbidities, the prognosis is guarded. I called the patient's son and informed him about the patient's condition and answered all of her questions. cc: Chet Rowe MD MTDD
[2018-11-20] MEDS ORDERED: CARDIZEM IV ONE (12:25)
[2018-11-20] MEDS: CARDIZEM PO SCH ×3 (12:49→20:38)
--- NOTE | 2018-11-20 13:49 | EKG Report ---
Test Performed on : 11/20/2018 11:33:16 AM Test Reason : CCU 10. No order in [place] Blood Pressure : / mmHG Vent. Rate : 140 BPM Atrial Rate : 280 BPM P-R Int : 000 ms QRS Dur : 070 ms QT Int : 310 ms P-R-T Axes : 000 -32 138 degrees QTc Int : 473 ms Undetermined rhythm Left axis deviation Inferior infarct (cited on or before 18-NOV-2018) Cannot rule out Anterior infarct , age undetermined Abnormal ECG When compared with ECG of 18-NOV-2018 15:42, Current undetermined rhythm precludes rhythm comparison, needs review ST now depressed in Anterior leads Nonspecific T wave abnormality now evident in Inferior leads Nonspecific T wave abnormality, worse in Lateral leads Confirmed by Brenda JOHNSON, Willis ([id number]) on 11/23/2018 8:56:18 AM
--- NOTE | 2018-11-20 14:30 | PULMONOLOGY PROGRESS NOTE ---
DATE: 11/20/2018 SUBJECTIVE: The patient is arousable. She speaks in a very soft voice. She has no increased work of breathing. She is not eating. OBJECTIVE: Vital Signs: Blood pressure 100/56, heart rate 94, respiratory rate 15, oxygen saturation 97%. HEENT: Pupils are equal and reactive. Oropharynx appears clear. Neck: Supple. Chest: Reveals decreased breath sounds in the lung bases. Cardiovascular: S1-S2. Abdomen: Soft with positive bowel sounds present. There is ostomy output. Extremities: Without edema. LABORATORIES: Chest x-ray reveals effusions bilaterally, right greater than left with probable atelectasis at the left base. White blood count 4.88, hemoglobin 11.8, platelet count 122,000. Sodium 131, potassium 3.6, chloride 92, bicarbonate 29, BUN 29, creatinine 0.5, total protein 4.9, albumin 2.1. Arterial blood gas, pH 7.56, pCO2 of 37, PO2 of 138 with a lactate of 2.6. IMPRESSION: 88-year-old with: 1. Acute hypoxemic respiratory failure after surgery. 2. Bilateral pleural effusions, right greater than left. 3. Protein calorie malnutrition. 4. Clostridium difficile colitis, status post emergent colectomy for toxic megacolon. RECOMMENDATIONS: 1. Continue Clinimix. Her p.o. intake is limited. I will try tube feeds as tolerated given her protein calorie malnutrition. 2. Continue bronchial hygiene. 3. Continue oxygen and BiPAP as needed. 4. Prognosis is guarded, but appears to be improved over the last 48 hours. cc: Ever Noel MD
[2018-11-20] MEDS: LEVAQUIN 250 MG/D5W 250 MG/50 ML IVPB IV SCH (16:01)
--- NOTE | 2018-11-20 17:47 | GENERAL SURGERY PROGRESS NOTE ---
DATE: 11/20/2018 SUBJECTIVE: She is now 5 days after abdominal colectomy with ileostomy. She is afebrile. Heart rate is 93. Blood pressure is 106/73. She tolerated the NG tube being clamped. Her ileostomy is functional and viable. Intake 2950, output 4100. LABS: White count 4900, hemoglobin 11.8, pH 7.56, pO2 is 138, pCO2 is 37 on 28%. BUN 29, creatinine 0.5. ASSESSMENT: She continues to do well off the ventilator and appears that her GI tract is waking up. I agree with beginning tube feedings. I think it is time to mobilize her as best we can. Surgical associates will cover in my absence. cc: Clif Silveira MD
[2018-11-20] MEDS ORDERED: CARDIZEM IV PRN (18:02)
[2018-11-20] MEDS: MEVACOR PO SCH (20:38)
[2018-11-21] MEDS: FLAGYL 500 MG/NS 500 MG/100 ML IVPB IV SCH ×4 (02:24→20:36)
[2018-11-21] MEDS: CARDIZEM PO SCH ×4 (02:24→20:36)
[2018-11-21] MEDS: XOPENEX NEB INH SCH ×6 (03:30→23:25)
[2018-11-21] MEDS: DILAUDID IV PRN (04:34)
[2018-11-21] MEDS: CLINIMIX E 4.25%-5% SOLUTION 1,000 ML IV SCH (04:40)
[2018-11-21 05:48] LABS: ALLEN TEST YES; BE 6.6 mmoll (-3.0-3.0); BLOOD TYPE ARTERIAL; METHB 0.9 % (0.0-1.5); O2(CT) 17.3 mL/dL (15.0-23.0); PCO2(98.6) 40 mmHg (35-45); PO2(98.6) 75 mmHg (60-100); SAMPLE BLOOD; SAO2 97.3 % (95.0-100.0); THB 12.9 g/dL (11.5-17.4); pH(98.6) 7.49 (7.35-7.45)
[2018-11-21 05:49] LABS: MODALITY CANNULA
[2018-11-21] MEDS: HUMALOG SUBQ SCH ×4 (06:15→20:36)
[2018-11-21 06:54] LABS: AGAP 10; ALB/GLOB RATIO 0.8; ALBUMIN 2.4 g/dL (3.5-5.0); ALKALINE PHOSPHATASE 200 U/L (32-104); BUN 33 mg/dL (8-22); CALCIUM 8.2 mg/dL (8.8-10.2); CHLORIDE 93 mmol/L (98-107); COSMO 279; CREATININE 0.5 mg/dL (0.5-0.9); ESTIMATED GFR > 60; GLUCOSE 195 mg/dL (70-104); GOT 28 U/L (10-30); GPT 17 U/L (10-36); POTASSIUM 4.2 mmol/L (3.5-5.1); SODIUM 133 mmol/L (136-145); TCO2 30 mmol/L (25-35); TOTAL BILIRUBIN 0.38 mg/dL (0.20-1.00); TOTAL PROTEIN 5.3 g/dL (6.3-8.3)
[2018-11-21] MEDS ORDERED: TYLENOL PO PRN (07:22)
--- NOTE | 2018-11-21 07:37 | Diag Imaging Result Doc PS360 ---
CHEST-PORTABLE - 11/21/2018 INDICATION: respiratory failure COMPARISON: 11/20/2018 FINDINGS: Support lines and tubes are stable. Stable retrocardiac opacification consistent with pleural effusion, infiltrate or atelectasis. Stable small bilateral pleural effusions. Heart size remains normal. No focal infiltrates. IMPRESSION: No change from prior. Small pleural effusions and retrocardiac infiltrate/atelectasis. Electronically signed by Mike Kingston 11/21/2018 7:35 AM
[2018-11-21] MEDS: CULTURELLE PO SCH (08:47)
[2018-11-21] MEDS: ASPIRIN EC PO SCH (08:47)
[2018-11-21] MEDS: LOVENOX SUBQ SCH (08:48)
[2018-11-21] MEDS ORDERED: LASIX IV SCH (09:00)
--- NOTE | 2018-11-21 09:41 | PROGRESS NOTE ---
DATE: 11/21/2018 INTERVAL HISTORY: Yesterday, patient had started developing rapid heart rate with heart rate as high as 140s. EKG had suggested intermittent sinus tachycardia with premature atrial contractions with intermittent atrial fibrillation. I had started the patient on intravenous diltiazem and p.o. diltiazem. She did not have any other acute overnight events. She was also started on tube feeds considering poor p.o. intake. SUBJECTIVE: The patient states she is feeling awful and she does not want to eat. I discussed with her about helping her get stronger and increasing p.o. intake as tolerated. Also discussed with her about her clinical condition, and I answered all of her questions. VITALS: She has been afebrile with temperature of 98.2. Her pulse overnight has been between 100 to 110 per minute. Her respiratory rate is 22. Her blood pressure is 133/67. She is saturating 96% on 2 L nasal cannula. PHYSICAL EXAMINATION: General: Does not appear in any acute distress. HEENT: No pallor, cyanosis, clubbing, or icterus. Oral cavity is dry. She has an NG tube. Lungs: Air entry bilaterally equal. No wheeze or rhonchi. Mild inframammary crackles. Heart: S1, S2 normal. Tachycardic, regular. No murmur, rub, or gallop. Abdomen: Soft. Midline incision extending from epigastric to pubic symphysis, which is dressed and not soaked. She has a right-sided lower quadrant ileostomy with yellowish output. She has mild generalized tenderness. She has right- sided PICC line and NG tube. Extremities: She has minimal edema affecting bilateral upper or lower extremities. LABS: Suggestive of PO2 of 75 on 2 L nasal cannula. Her BMP is suggestive of hyponatremia, hypochloremia, elevated BUN. MICROBIOLOGY: No new microbiological data. IMAGING: Chest x-ray today suggests mild bilateral pleural effusions without any new changes. ASSESSMENT AND PLAN: 1. Acute hypoxic respiratory failure postoperatively with bilateral pleural effusions and anasarca, status post extubation on November 18, now tolerating oxygen through nasal cannula well. I will stop intravenous Lasix considering she appears euvolemic to slightly dehydrated, and she has elevated BUN. 2. 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 Continue intravenous Flagyl and levofloxacin for a total of 14 days. Surgery on board. 3. Paroxysmal atrial fibrillation with rapid ventricular rate. Continue patient on diltiazem oral and intravenous as needed. Follow up with echocardiogram. Considering recent surgery, she may not be an ideal candidate of anticoagulation at the moment. 4. Protein calorie malnutrition with recent colectomy and inability to take by mouth considering generalized debility. Continue patient with nasogastric tube feeding and clear liquid diet. 5. Others: Intermittent fever with hypotension related to antihypertensive drug use, hyponatremia, hypochloremia, and metabolic alkalosis due to volume contraction, have been stable. Hypokalemia and hypomagnesemia have been resolved. DISPOSITION: The patient's condition remains stable, and I will transfer patient to step-down unit today. Plan of care discussed with her and nursing team at bedside. All of their questions have been answered. cc: Chet Rowe MD
--- NOTE | 2018-11-21 11:16 | PROGRESS NOTE ---
DATE: 11/21/2018 SUBJECTIVE: Ms. Dinah Link is status post abdominal colectomy with end ileostomy per Dr. Silveira for Clostridium difficile colitis with toxic megacolon. She is being fed through her NG tube, and there is order for transfer to the floor. OBJECTIVE: Her heart rate is 95 to 107, blood pressure is 133/67, O2 saturation is 96%. She is afebrile. ASSESSMENT AND PLAN: She is on IV antibiotics. She is on Clinimix, and she started tube feeding. She does have some gas and some stool out of her ileostomy bag. Midline incision seems to be okay. cc: Maribell Peter MD
[2018-11-21] MEDS: PHENERGAN IV PRN (13:05)
[2018-11-21] MEDS: OXY IR PO PRN (14:21)
--- NOTE | 2018-11-21 16:05 | PULMONOLOGY PROGRESS NOTE ---
DATE: 11/21/2018 SUBJECTIVE: The patient is awake and alert. She is not completely oriented. She has no increased work of breathing. She has had limited p.o. intake, but is tolerating tube feeds. OBJECTIVE: Vital Signs: The patient has been afebrile for the last 24 hours. Blood pressure 130/65, heart rate 108, respiratory rate 16, oxygen saturation 96% on 2 L per nasal cannula. HEENT: Pupils are equal and reactive. Oropharynx appears clear. Neck: Supple. Chest: Reveals occasional rhonchi bilaterally. Cardiac exam: S1, S2. Abdomen: Soft with positive bowel sounds. Extremities: Reveal trace edema. LABS/X-RAYS: Chest x-ray reveals small pleural effusions, and an infiltrate at the left base. Sodium 133, potassium 4.2, chloride 93, bicarbonate 30. BUN 33, creatinine 0.5. Arterial blood gas reveals pH 7.49, pCO2 of 40, PO2 of 75 on 2 L per nasal cannula. IMPRESSION: An 88-year-old with: 1. Acute hypoxemia following emergent surgery. 2. Bilateral pleural effusions with improvement. 3. Protein calorie malnutrition. Tolerating tube feeds. 4. Clostridium difficile colitis, status post emergent colectomy for toxic medica colon. RECOMMENDATIONS: 1. Continue tube feeds. 2. Discontinue Clinimix. 3. Wean oxygen as tolerated. 4. Continue bronchial hygiene. 5. Anticipate transfer to the floor soon. cc: Ever Noel MD
[2018-11-21] MEDS: LEVAQUIN 250 MG/D5W 250 MG/50 ML IVPB IV SCH (16:30)
--- NOTE | 2018-11-21 17:10 | ECHO REPORT ---
ORDER DATE: 11/20/2018 INDICATION: Atrial fibrillation. FINDINGS: 1. The right atrium appears normal in size at 3.7 cm. 2. Trace tricuspid regurgitation. RV systolic pressure of 45. 3. Normal RV size and systolic function. 4. Mild pulmonic insufficiency. 5. Moderate left atrial enlargement with a volume index of 38. 6. No mitral valve prolapse. Trace mitral regurgitation. 7. Normal LV size, end-diastolic dimension of 3.6. Normal wall thicknesses with a posterior and interventricular septal wall thickness of 1.0 cm each. Normal LV systolic function. Estimated EF of 65% with normal wall motion. 8. Aortic valve opens well. It is trileaflet. There is mild insufficiency. No stenosis. 9. Aorta appears normal in visualized segments. 10. No pericardial effusion seen. Would recommend alternative imaging modality to assess for the possibility of pleural effusion, which is suggested on this study. cc: MD Chet Liang MD
[2018-11-21] MEDS: MEVACOR PO SCH (20:35)
[2018-11-22] MEDS: CARDIZEM PO SCH ×5 (02:43→21:30)
[2018-11-22] MEDS: FLAGYL 500 MG/NS 500 MG/100 ML IVPB IV SCH ×4 (02:43→21:18)
[2018-11-22] MEDS: XOPENEX NEB INH SCH ×3 (03:09→10:55)
[2018-11-22] MEDS: HUMALOG SUBQ SCH ×4 (06:02→21:31)
[2018-11-22 06:03] LABS: BASO# 0.01 X1000 (0.0-0.2); BASO% 0.1 % (0.0-0.8); EOS# 0.08 X1000 (0.0-0.7); HEMATOCRIT 32.9 % (37.0-47.0); IMM GRAN# 0.03 X1000 (0.0-0.04); IMM GRAN% 0.4 % (0.0-0.5); LYMPH# 0.67 X1000 (1.2-3.4); LYMPH% 8.7 % (20.5-51.1); MCH 28.6 PG (27-31); MCHC 33.4 g/dL (33-37); MCV 85.7 FL (81-99); MONO# 0.66 X1000 (0.11-0.59); MONO% 8.6 % (1.7-9.3); MPV 11.6 FL (7.4-10.4); NEUT# 6.26 X1000 (1.4-6.5); NEUT% 81.2 % (42.2-75.2); PLT 196 X1000 (130-400); RBC 3.84 XMIL (4.2-5.4); RDW 14.7 % (11.5-14.5); WBC 7.71 X1000 (4.8-10.8)
[2018-11-22 06:30] LABS: MAGNESIUM 1.9 mg/dL (1.5-2.7); PHOSPHORUS 3.2 mg/dL (2.7-4.5)
[2018-11-22 06:37] LABS: AGAP 11; ALB/GLOB RATIO 0.8; ALBUMIN 2.3 g/dL (3.5-5.0); ALKALINE PHOSPHATASE 305 U/L (32-104); BUN 30 mg/dL (8-22); CHLORIDE 97 mmol/L (98-107); COSMO 282; CREATININE 0.5 mg/dL (0.5-0.9); ESTIMATED GFR > 60; GLUCOSE 161 mg/dL (70-104); GOT 47 U/L (10-30); GPT 24 U/L (10-36); SODIUM 136 mmol/L (136-145); TCO2 28 mmol/L (25-35); TOTAL BILIRUBIN 0.32 mg/dL (0.20-1.00); TOTAL PROTEIN 5.3 g/dL (6.3-8.3)
[2018-11-22] MEDS: LOVENOX SUBQ SCH (08:12)
[2018-11-22] MEDS: CULTURELLE PO SCH (08:12)
[2018-11-22] MEDS: ASPIRIN EC PO SCH (08:12)
[2018-11-22] MEDS: PHENERGAN IV PRN (08:18)
--- NOTE | 2018-11-22 13:26 | PROGRESS NOTE ---
DATE: 11/22/2018 INTERVAL HISTORY: Ms Link was transferred out of ICU to step-down unit yesterday. She did not have any acute events overnight. She continues to have tachycardia with heart rate in 120s and EKG yesterday was suggestive of premature atrial contraction with sinus tachycardia. Today at bedside monitor it does appear to have sinus tachycardia. Her echocardiogram had ejection fraction of 65%. Her diltiazem dose has been held and I will add holding parameters to that as tolerated. SUBJECTIVE: The patient is very drowsy at the moment, not answering any questions. Follows sometimes simple commands but does not engage in conversation meaningfully. Currently vitals temperature 99.1 degrees, pulse 128, respiratory 19, blood pressure 111/58, saturating 98% on 2 L nasal cannula. PHYSICAL EXAMINATION: Cachectic, not in any acute distress. Very drowsy. She has an NG tube in place. Air entry bilaterally equal. No wheeze or rhonchi. Mild inframammary crackles bilaterally. S1, S2. Tachycardic, regular. No murmur, rub, or gallop.Abdomen: Soft. She has midline incision extending from epigastric to pubis symphysis. The dressing is not soaked. She also had right-sided lower quadrant ileostomy with greenish yellowish output. She has mild abdominal generalized tenderness, right-sided PICC line, bilateral edema affecting upper and mostly lower extremities. Input and output suggestive of positive 800 mL accumulated input, output suggests positive 6 L. LABS: No leukocytosis. Acceptable range of hemoglobin, hematocrit. Her thrombocytopenia has resolved. She does have appropriate electrolytes, elevated BUN and creatinine. However kidney function and GFR are normal. Microbiology, no positive data. IMAGING: No new chest x-ray today. ASSESSMENT AND PLAN: 1. Acute hypoxic respiratory failure postoperatively with bilateral pleural effusions and anasarca status post extubation on November 18 now tolerating oxygenation through nasal cannula well. Consider a dose of Lasix as needed according to her respiratory status. 2. 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 Continue intravenous levofloxacin and metronidazole for a total of 14 days course. The last dose would be on November 29. I will consider stopping intravenous levofloxacin however after 10 days. 3. Paroxysmal atrial fibrillation with rapid ventricular rate. EKG did have what appeared to be sinus tachycardia with premature atrial contractions. I will continue her diltiazem to take care of heart rate as well as hypertension as well. Echocardiogram had normal ejection fraction. She is not a candidate of anticoagulation and she did not have definite evidence of atrial fibrillation on my review of imaging. 4. Protein calorie malnutrition with recent colectomy and inability to take by mouth. Considering generalized debility continue NG tube feedings and clear liquid diet as tolerated. 5. Others. Her other issues including hyponatremia, hypochloremia, metabolic alkalosis due to volume contraction, intermittent fever and hypotension have resolved and are stable. DISPOSITION: Patient has code status DNR level 1. Palliative Care is on board. Continue to monitor patient in [facility]. Unfortunately she has deconditioned after recent illnesses and her prognosis is guarded. Plan of care discussed with patient's son on phone. All of his questions have been answered. cc: Chet Rowe MD
[2018-11-22] MEDS ORDERED: ZOFRAN IV PRN (14:19)
[2018-11-22] MEDS: ATROVENT NEB INH SCH ×3 (15:10→23:28)
[2018-11-22] MEDS: LEVAQUIN 250 MG/D5W 250 MG/50 ML IVPB IV SCH (15:35)
--- NOTE | 2018-11-22 18:20 | PROGRESS NOTE ---
DATE: 11/22/2018 SUBJECTIVE: Ms. Link is an 88-year-old white female who required a total abdominal colectomy with ileostomy per Dr. Silveira for C difficile and toxic colon. She remains weak. She has been transferred from the ICU to the CICU. She is being tube fed through her NG tube at this time. She is not eating. Her ostomy is functioning. Her white blood cell count is normal. Hematocrit is 33%. Electrolytes are satisfactory. She is just very weak. VITAL SIGNS: Her heart rate is 98, blood pressure 94/42. O2 saturation is 100%. Temperature 99.8. She is still on IV antibiotics, which include Flagyl and Levaquin. PLAN: Supportive care. cc: Maribell Peter MD
--- NOTE | 2018-11-22 20:31 | PULMONOLOGY PROGRESS NOTE ---
DATE: 11/22/2018 SUBJECTIVE: The patient is awake and alert. She remains extremely weak. She is not taking any p.o. intake but is tolerating tube feeds. OBJECTIVE: Vital Signs: Blood pressure 111/58, heart rate 128, respiratory rate 19, oxygen saturation 98% on 2 L per nasal cannula. HEENT: Pupils are equal and reactive. Oropharynx is clear. Neck: Supple. Chest: Reveals positive rhonchi. The patient is too weak to completely clear her secretions. Cardiac: S1, S2 with increased rate. Abdomen: Soft with positive bowel sounds. Extremities: Without edema. LABORATORIES: White blood count 7.71, hemoglobin 11, platelet count continues to recover at 196,000. Sodium 136, potassium 4, chloride 97, bicarbonate 28, BUN 30, creatinine 0.5, total protein 5.3, albumin 2.3. IMPRESSION: An 88-year-old with: 1. Acute hypoxemic respiratory failure following emergent surgery. 2. Bilateral pleural effusions with continued improvement. 3. Protein calorie malnutrition. She continues to have poor p.o. intake but is tolerating tube feeds. 4. Status post emergent colectomy for Clostridium difficile colitis and toxic megacolon. RECOMMENDATION: 1. Continue tube feeds as tolerated. 2. Encourage cough and bronchial hygiene. 3. Continue oxygen. 4. Prognosis is guarded to poor. End of life discussions have been held with the patient and family, and if she does not do well she will be allowed to have a natural . cc: Ever Noel MD
[2018-11-22] MEDS: MEVACOR PO SCH (21:30)
[2018-11-23] MEDS: CARDIZEM PO SCH ×4 (01:55→20:20)
[2018-11-23] MEDS: FLAGYL 500 MG/NS 500 MG/100 ML IVPB IV SCH ×4 (01:55→20:21)
[2018-11-23] MEDS: ATROVENT NEB INH SCH ×6 (03:19→23:07)
[2018-11-23 05:48] LABS: AGAP 8; ALB/GLOB RATIO 0.9; ALBUMIN 2.4 g/dL (3.5-5.0); ALKALINE PHOSPHATASE 264 U/L (32-104); BUN 27 mg/dL (8-22); CALCIUM 8.2 mg/dL (8.8-10.2); CHLORIDE 100 mmol/L (98-107); COSMO 282; CREATININE 0.5 mg/dL (0.5-0.9); ESTIMATED GFR > 60; GLUCOSE 145 mg/dL (70-104); GOT 44 U/L (10-30); GPT 27 U/L (10-36); POTASSIUM 3.9 mmol/L (3.5-5.1); SODIUM 137 mmol/L (136-145); TCO2 29 mmol/L (25-35); TOTAL BILIRUBIN 0.45 mg/dL (0.20-1.00); TOTAL PROTEIN 5.2 g/dL (6.3-8.3)
[2018-11-23] MEDS: HUMALOG SUBQ SCH ×4 (06:06→20:21)
--- NOTE | 2018-11-23 07:23 | Diag Imaging Result Doc PS360 ---
EXAM: CHEST-PORTABLE INDICATION: abnormal exam TECHNIQUE: One view COMPARISON: 11/21/2018 FINDINGS: Support tubes and lines are in stable positions. The bilateral small effusions appear to have increased slightly and there is increased atelectasis and/or infiltrate at the lung bases. No new consolidation is identified, otherwise. Cardiac silhouette is stable. IMPRESSION: Increasing pleural effusions with adjacent atelectasis and/or infiltrate at the lung bases. Electronically signed by Demetrius Montenegro 11/23/2018 7:21 AM
[2018-11-23] MEDS: ASPIRIN EC PO SCH (08:00)
[2018-11-23] MEDS: CULTURELLE PO SCH (08:00)
[2018-11-23] MEDS: LOVENOX SUBQ SCH (08:00)
--- NOTE | 2018-11-23 11:39 | PROGRESS NOTE ---
DATE: 11/23/2018 INTERVAL HISTORY: No acute overnight events. SUBJECTIVE: She is very tired and sleepy, and looks very lethargic. However, she is arousable to verbal stimuli and she follows simple commands. She tells me that she is tired of being in the hospital and again lapses back into sleep. VITAL SIGNS: Currently suggest temperature of 98.5 degrees, pulse of 85, blood pressure 128/53, saturating 95% on 2 L nasal cannula. PHYSICAL EXAMINATION: She is not in any acute distress. She is sleepy. She appears very malnourished and weak. She has a nasogastric tube in place. Lungs: Air entry equal in bilateral supramammary region with decreased air entry with inspiratory crackles bilateral in inframammary region. S1, S2 normal. Tachycardic, regular. Abdomen is soft. Midline incision extending from epigastric to pubic symphysis. Dressing is not soaked. She has a right-sided lower quadrant ileostomy with stool output adequate. She also has mild abdominal distention without any tenderness. Right-sided PICC line. Bilateral edema affecting lower extremities. Input and output suggests it is positive 200 mL yesterday. LABS: She does not have any CBC. BMP was essentially unremarkable except elevated BUN. ASSESSMENT AND PLAN: 1. Acute hypoxic respiratory failure postoperatively with bilateral pleural effusions and anasarca, status post extubation on November 18. Continue oxygenation through nasal cannula. I will start her on oral Lasix, considering chest x-ray findings which I think is a combination of atelectasis and small effusion. 2. Acute diffuse colitis with presumed Clostridium difficile enterocolitis leading to toxic megacolon requiring emergent colectomy and ileostomy on 11/15/2018. Continue intravenous levofloxacin and Flagyl until November 29. Her septic shock has resolved. 3. Paroxysmal atrial fibrillation with rapid ventricular rate and intermittent sinus tachycardia with premature atrial contraction. Continue oral diltiazem as tolerated. Echocardiogram had normal ejection fraction. She is not currently a candidate for anticoagulation since the EKG was not very conclusive of atrial fibrillation on my review. 4. Protein calorie malnutrition with recent colectomy and poor oral intake and generalized debility. Continue nasogastric tube feedings and clear liquid diet as tolerated. 5. Her other issues including metabolic alkalosis, hyponatremia, hypochloremia, volume contraction, intermittent fever, and hypotension have resolved. 6. Disposition. The patient's condition is still tenuous considering old age and prolonged hospital course. Her code status is Do Not Resuscitate level 1. I have discussed with the palliative team about again bringing up a course of care discussion with the patient's son. I had discussed with him yesterday. The patient might benefit from going to a long-term care [facility] facility if she does not perk up in the next few days and the family agrees. Hospice evaluation could also be appropriate. Plan of care discussed with the patient. All of her questions have been answered. cc: Chet Rowe MD MTDD
[2018-11-23] MEDS: LASIX PO SCH (12:00)
[2018-11-23] MEDS: LEVAQUIN 250 MG/D5W 250 MG/50 ML IVPB IV SCH (15:16)
--- NOTE | 2018-11-23 17:39 | PROGRESS NOTE ---
DATE: 11/23/2018 Ms. Link's midline wound is healing well. It still has clips. She has an ileostomy which is functioning, and she is being tube fed at 45 mL an hour. She is awake. Her abdomen is soft without tenderness. She remains very weak and continues to get supportive care. cc: Maribell Peter MD
[2018-11-23] MEDS: MEVACOR PO SCH (20:21)
--- NOTE | 2018-11-23 21:52 | PULMONOLOGY PROGRESS NOTE ---
DATE: 11/23/2018 SUBJECTIVE: The patient is awake and alert. She does answer questions. She has a weak but improving cough. She is tolerating tube feeds but is not taking significant p.o. intake. OBJECTIVE: BP 118/55, heart rate 96, respiratory rate 20, oxygen saturation 100% on 2 L per nasal cannula.HEENT: Pupils are equal and reactive. Oropharynx is clear. Neck: Is supple. Chest: Reveals some decreased breath sounds in the lung bases. Cardiac: S1, S2. Abdomen: Soft with good bowel sounds. LABORATORIES: Chest x-ray reveals small bilateral effusions which have slightly increased in size. Sodium 137, potassium 3.9, chloride 100, bicarbonate 29, BUN 27, creatinine 0.5, albumin 2.4 and stable. IMPRESSION: An 88-year-old with: 1. Acute hypoxemic respiratory failure. 2. Small bilateral effusions. 3. Protein calorie malnutrition with poor p.o. intake. 4. Status post emergent colectomy for Clostridium difficile colitis and toxic megacolon. RECOMMENDATIONS: 1. Encourage cough and bronchial hygiene. 2. Continue oxygen and wean per protocol. 3. Continue tube feeds if tolerated. 4. Palliative care discussions in progress as indicated by Dr. Rowe. cc: Ever Noel MD
[2018-11-24] MEDS: CARDIZEM PO SCH ×4 (02:27→20:28)
[2018-11-24] MEDS: FLAGYL 500 MG/NS 500 MG/100 ML IVPB IV SCH ×4 (02:27→20:28)
[2018-11-24] MEDS: ATROVENT NEB INH SCH ×6 (03:20→23:20)
[2018-11-24] MEDS: HUMALOG SUBQ SCH ×4 (05:59→20:28)
[2018-11-24 06:31] LABS: BASO# 0.03 X1000 (0.0-0.2); BASO% 0.5 % (0.0-0.8); EOS# 0.22 X1000 (0.0-0.7); EOS% 3.6 % (0.0-10.0); HEMATOCRIT 31.9 % (37.0-47.0); HEMOGLOBIN 10.1 g/dL (12.0-16.0); IMM GRAN# 0.03 X1000 (0.0-0.04); IMM GRAN% 0.5 % (0.0-0.5); LYMPH# 0.53 X1000 (1.2-3.4); LYMPH% 8.7 % (20.5-51.1); MCH 28.3 PG (27-31); MCHC 31.7 g/dL (33-37); MCV 89.4 FL (81-99); MONO# 0.68 X1000 (0.11-0.59); MONO% 11.2 % (1.7-9.3); MPV 11.5 FL (7.4-10.4); NEUT# 4.57 X1000 (1.4-6.5); NEUT% 75.5 % (42.2-75.2); PLT 230 X1000 (130-400); RBC 3.57 XMIL (4.2-5.4); RDW 15.8 % (11.5-14.5); WBC 6.06 X1000 (4.8-10.8)
[2018-11-24 06:46] LABS: AGAP 1; ALB/GLOB RATIO 0.9; ALBUMIN 2.6 g/dL (3.5-5.0); ALKALINE PHOSPHATASE 237 U/L (32-104); BUN 23 mg/dL (8-22); CALCIUM 8.5 mg/dL (8.8-10.2); CHLORIDE 98 mmol/L (98-107); COSMO 282; CREATININE 0.5 mg/dL (0.5-0.9); ESTIMATED GFR > 60; GLUCOSE 137 mg/dL (70-104); GOT 41 U/L (10-30); GPT 28 U/L (10-36); POTASSIUM 3.4 mmol/L (3.5-5.1); SODIUM 138 mmol/L (136-145); TCO2 39 mmol/L (25-35); TOTAL BILIRUBIN 0.47 mg/dL (0.20-1.00); TOTAL PROTEIN 5.5 g/dL (6.3-8.3)
[2018-11-24 06:58] LABS: MAGNESIUM 1.9 mg/dL (1.5-2.7); PHOSPHORUS 3.4 mg/dL (2.7-4.5)
[2018-11-24] MEDS: POTASSIUM CHLORIDE 10% LIQUID PO SCH ×2 (08:23→10:59)
[2018-11-24] MEDS: LASIX PO SCH (08:24)
[2018-11-24] MEDS: LOVENOX SUBQ SCH (08:24)
[2018-11-24] MEDS: ASPIRIN EC PO SCH (08:24)
[2018-11-24] MEDS: CULTURELLE PO SCH (08:24)
[2018-11-24] MEDS ORDERED: LASIX IV ONE (09:45)
--- NOTE | 2018-11-24 10:28 | PROGRESS NOTE ---
DATE: 11/24/2018 INTERVAL HISTORY: No acute event overnight. The patient has been intermittently eating. However, she appears very tired and usually remains inside the bed the entire time. No other events. SUBJECTIVE: The patient asked me why she is in the hospital. I explained to her about her condition. I also explained to her about the need for getting nutritionally stronger. I answered all of her questions. She is receiving an nasogastric tube which could not be advanced because of high residuals currently. VITAL SIGNS: Suggest temperature of 98.3 degrees, pulse 82, respiratory rate 17, blood pressure 120/55, saturating 100% on 2 L nasal cannula. Input and output- she did have a bowel movement yesterday. PHYSICAL EXAMINATION: The patient appears tired and weak, not in any acute distress. NG tube in place. Lungs: Decreased air entry especially right inframammary region with inspiratory crackles no wheeze or rhonchi. Cardiovascular: S1, S2 normal. Tachycardic, regular. Abdomen: Soft, mildly distended with tympanic to percussion. Midline incision with gayathri on extending from epigastric to pubic symphysis. Right lower quadrant ileostomy with yellowish greenish stool output. Right-sided PICC line. Extremities: Bilateral lower extremity edema. LABS: Suggestive of no leukocytosis, now acceptable range of hemoglobin, hematocrit, and platelet count. Hypokalemia which is being repleted. Elevated carbon dioxide. She does have elevated BUN with normal kidney function. Her blood sugars have been in acceptable range. ASSESSMENT AND PLAN: 1. Acute hypoxic respiratory failure postoperatively with bilateral pleural effusions, anasarca, status post extubation on November 18. Continue oxygenation through nasal cannula. Continue oral Lasix and give her 1 time additional IV Lasix for right-sided pleural effusion. 2. Acute diffuse colitis with presumed C difficile colitis leading to toxic megacolon requiring emergent colectomy and ileostomy on 11/15/2018. Continue intravenous levofloxacin and Flagyl until November 29. Her septic shock has resolved. Continue nasogastric tube feeding. The patient has not had any improvement in oral intake as such. I will initiate discussion about long-term nutrition plan with the family in terms of PEG tube if the patient's oral intake does not improve in next 48 hours. 3. Paroxysmal atrial fibrillation with rapid ventricular rate and intermittent sinus tachycardia with PAC, currently well controlled on oral diltiazem. Echocardiogram essentially had normal ejection fraction without any significant valvular abnormality. 4. Protein calorie malnutrition with recent colectomy and poor p.o. intake and generalized debility. Plan as mentioned above. Continue clear liquid diet. 5. Metabolic alkalosis, hyponatremia, hypochloremia, volume contraction, intermittent fever, hypertension, currently stable. DISPOSITION: 1. I will continue to monitor patient in [facility]. After discussion with the palliative care team yesterday the patient's code status has changed been changed to DNR level 1 and a portable DNR form has been signed. 2. I will also involved palliative care team to start discussion on long-term nutrition plan with the patient's son. 3. Plan of care discussed with the patient at the moment. All of her questions have been answered. cc: Chet Rowe MD
[2018-11-24] MEDS: LEVAQUIN 250 MG/D5W 250 MG/50 ML IVPB IV SCH (16:23)
--- NOTE | 2018-11-24 16:59 | PROGRESS NOTE ---
DATE: 11/24/2018 SUBJECTIVE: An 88-year-old female. She has an NG tube in place, and she is getting tube feeding at 45 mL an hour. She does have some residual, but she has had no vomiting. She does not eat on her own. She is very weak. OBJECTIVE: Her ileostomy is functioning. Her midline incision is intact with skin clips. They are discussing placement with the family. PLAN: Continue supportive care. cc: Maribell Peter MD
[2018-11-24] MEDS: MEVACOR PO SCH (20:28)
--- NOTE | 2018-11-24 20:52 | PULMONOLOGY PROGRESS NOTE ---
DATE: 11/24/2018 SUBJECTIVE: The patient is awake, alert, and conversant. She has a marginal cough effort. She is currently not tolerating her tube feeds which are on hold. OBJECTIVE: Vital Signs: The patient has been afebrile for the last 24 hours. Blood pressure 115/56, heart rate 86, respiratory rate 18, oxygen saturation 100% on 2 L per nasal cannula. HEENT: Pupils are equal and reactive. Oropharynx is dry but clear. Neck: Supple. Chest: Reveals decreased breath sounds left base. Cardiac exam: S1, S2. Abdomen: Mildly tympanitic without tenderness. Extremities: Without edema. LABORATORIES: White blood count 6.0, hemoglobin 10.1, platelet count 230,000. Sodium 138, potassium 3.4, chloride 98, bicarbonate 39, BUN 23, creatinine 0.5, phosphorus 3.4, magnesium 1.9. IMPRESSION: An 88-year-old with: 1. Emergent colectomy for Clostridium difficile colitis and toxic megacolon. 2. Acute hypoxemic respiratory failure. 3. Bilateral effusions. 4. Protein calorie malnutrition. RECOMMENDATION: 1. Continue bronchial hygiene. 2. Continue oxygen and wean per protocol. 3. Continue tube feeds as tolerated pending increase in p.o. intake. 4. Follow up chest x-ray tomorrow. cc: Ever Noel MD
[2018-11-25] MEDS: FLAGYL 500 MG/NS 500 MG/100 ML IVPB IV SCH ×2 (01:44→09:35)
[2018-11-25] MEDS: CARDIZEM PO SCH ×4 (01:44→20:08)
[2018-11-25] MEDS: ATROVENT NEB INH SCH ×5 (03:16→18:39)
[2018-11-25] MEDS: HUMALOG SUBQ SCH ×4 (06:00→21:40)
[2018-11-25 06:07] LABS: AGAP 9; ALB/GLOB RATIO 0.8; ALBUMIN 2.5 g/dL (3.5-5.0); ALKALINE PHOSPHATASE 219 U/L (32-104); BUN 24 mg/dL (8-22); CALCIUM 8.5 mg/dL (8.8-10.2); CHLORIDE 102 mmol/L (98-107); COSMO 287; CREATININE 0.5 mg/dL (0.5-0.9); ESTIMATED GFR > 60; GLUCOSE 137 mg/dL (70-104); GOT 35 U/L (10-30); GPT 26 U/L (10-36); POTASSIUM 3.7 mmol/L (3.5-5.1); SODIUM 141 mmol/L (136-145); TCO2 30 mmol/L (25-35); TOTAL BILIRUBIN 0.46 mg/dL (0.20-1.00); TOTAL PROTEIN 5.6 g/dL (6.3-8.3)
--- NOTE | 2018-11-25 07:26 | Diag Imaging Result Doc PS360 ---
EXAM: CHEST-PORTABLE HISTORY: abnormal exam TECHNIQUE: Portable chest single view COMPARISON: 11/23/2018 FINDINGS: No change in the right-sided PICC line or in the nasogastric tube. The lungs are better expanded on the current study. There are small pleural effusions which have slightly decreased in size. There is basilar atelectasis and there may be underlying infiltrates. These are less pronounced than on the prior study. IMPRESSION: Interval improvement. Electronically signed by Kip Wilkerson 11/25/2018 7:24 AM
[2018-11-25] MEDS: LOVENOX SUBQ SCH (09:35)
[2018-11-25] MEDS: ASPIRIN EC PO SCH (09:35)
[2018-11-25] MEDS: LASIX PO SCH ×2 (09:35→20:09)
[2018-11-25] MEDS: CULTURELLE PO SCH (09:35)
--- NOTE | 2018-11-25 11:25 | GENERAL SURGERY PROGRESS NOTE ---
DATE: 11/25/2018 SUBJECTIVE: Ms. Link is progressing nicely. She is currently standing up with Physical Therapy assisting her. OBJECTIVE: Vitals: She is afebrile, heart rate 95, blood pressure 124/52. INPUT AND OUTPUT: Intake was 530, output 2080. She is eating a little bit. Her ileostomy continues to function. LABORATORIES: Her laboratories look okay. ASSESSMENT AND PLAN: I think we should consider her for an appetite stimulant. cc: Clif Silveira MD
--- NOTE | 2018-11-25 13:51 | PROGRESS NOTE ---
DATE: 11/25/2018 INTERVAL HISTORY: No acute events. The patient was sitting up in the bed. She is feeling stronger today. Denies any new complaints. We discussed about taking the nasogastric tube out. We discussed about her clinical course and answered all of her questions. She denies any chest pain or shortness of breath. OBJECTIVE: Vitals: Temperature 97.7 degrees, pulse 91, respiratory rate 15, blood pressure 120/52 ,saturating 100% on 2 L nasal cannula. General: Appears cachectic. Not in significant distress. Oral cavity is dry. She has an NG tube. Air entry bilaterally equal. No wheeze or rhonchi. Mild inspiratory crackles bilateral, especially right inframammary region. S1, S2 normal. Not tachycardic. Regular. No murmur, rub, or gallop. Abdomen is soft, mildly distended with gas and tympanic to percussion. Midline incision with gayathri extending from epigastric to pubic symphysis. Right lower quadrant ileostomy with yellowish greenish stool output right-sided PICC line. Extremities: Bilateral lower extremity edema, which is decreasing. LABORATORIES: Today suggestive of her BMP in acceptable range with resolution of hypokalemia and normal kidney function. ASSESSMENT AND PLAN: 1. Acute hypoxic respiratory failure postoperatively with bilateral pleural effusion, anasarca, status post extubation on November 18. Continue oxygenation through nasal cannula to keep saturation more than 94%. Continue oral Lasix and follow up with kidney function closely. Currently, she is breathing well on nasal cannula. 2. 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 I will change antibiotics to p.o., which she should continue until November 29. Her septic shock on presentation has resolved. I will take the nasogastric tube out and continue oral feed. Megestrol has been added, too, as an appetite stimulant. 3. Paroxysmal atrial fibrillation with rapid ventricular rate and intermittent sinus tachycardia with premature atrial contractions, currently well controlled on oral diltiazem. Echocardiogram had normal ejection fraction without significant valvular abnormality. Since her EKG was more suggestive of sinus tachycardia with PAC and her other comorbidities, I did not resume any anticoagulation. 4. Protein-calorie malnutrition and recent colectomy with poor oral intake and generalized debility. Plan as mentioned above. Continue diet as tolerated. 5. Other issues, including metabolic alkalosis, hyponatremia, hypochloremia, volume contraction, intermittent fever, hypotension, are currently stable. DISPOSITION: I will transfer patient to routine medical floor. I called patient's son and informed him about her clinical condition. If patient has reasonable oral intake, then the plan would be to discharge her to [facility] in the next 24 to 48 hours. If the patient develops nausea/vomiting, abdominal distention after oral intake or if her oral intake does not improve and nutrition is still a concern, then we will consider introducing a PEG tube later this week. The son is in agreement with the plan and he has already started thinking about a PEG tube if need arises and he will have a detailed discussion with his mother. cc: Chet Rowe MD
[2018-11-25] MEDS: LEVAQUIN PO SCH (15:24)
[2018-11-25] MEDS: FLAGYL PO SCH (18:38)
[2018-11-25] MEDS: MEGACE LIQUID PO SCH (20:08)
[2018-11-25] MEDS: MEVACOR PO SCH (20:09)
[2018-11-25] MEDS: OXY IR PO PRN (20:09)
--- NOTE | 2018-11-25 21:13 | PULMONOLOGY PROGRESS NOTE ---
DATE: 11/25/2018 SUBJECTIVE: The patient is awake and alert. She is without specific complaints. She does report she is anxious and cannot get rest. Her NG tube has been removed. OBJECTIVE: Blood pressure 120/44, heart rate 80, respiratory rate 14, oxygen saturation 100% on 3 L per nasal cannula. She has been afebrile for the last 24 hours. HEENT: Pupils are equal and reactive. Oropharynx is clear. Neck is supple. Chest reveals decreased breath sounds in the lung bases. Cardiac exam: S1, S2. Abdomen is soft, without hepatosplenomegaly. Extremities are without edema. DIAGNOSTIC DATA: Chest x-ray reveals small effusion on the right with blunting of the angle on the left. There has been some mild improvement. LABORATORY DATA: Sodium 141, potassium 3.7, chloride 102, bicarbonate 30, BUN 24, creatinine 0.5. IMPRESSION: 1. An 88-year-old with acute hypoxemic respiratory failure. 2. Pleural effusions which are slowly resolving. 3. Protein-calorie malnutrition. 4. Status post emergent colectomy for Clostridium difficile colitis and toxic megacolon. RECOMMENDATIONS: 1. Continue bronchial hygiene. 2. Agree with removing NG tube, increasing p.o. intake, and initiating an appetite stimulant. 3. Watch Lasix carefully. The patient's p.o. intake has diminished and she will be at risk for dehydration. cc: Ever Noel MD
[2018-11-26] MEDS: ATROVENT NEB INH SCH ×6 (01:00→19:59)
[2018-11-26] MEDS: CARDIZEM PO SCH ×4 (01:42→20:28)
[2018-11-26] MEDS: OXY IR PO PRN (01:42)
[2018-11-26] MEDS: HUMALOG SUBQ SCH ×3 (06:42→16:57)
[2018-11-26] MEDS: FLAGYL PO SCH ×3 (08:48→17:28)
[2018-11-26] MEDS: ASPIRIN EC PO SCH (08:48)
[2018-11-26] MEDS: LEVAQUIN PO SCH (08:48)
[2018-11-26] MEDS: LASIX PO SCH (08:48)
[2018-11-26] MEDS: CULTURELLE PO SCH (08:48)
[2018-11-26] MEDS: MEGACE LIQUID PO SCH ×2 (08:52→20:29)
[2018-11-26] MEDS: LOVENOX SUBQ SCH (08:52)
--- NOTE | 2018-11-26 09:50 | PROGRESS NOTE ---
DATE: 11/26/2018 SUBJECTIVE: No acute events overnight. This patient is lying comfortably in bed. She is tolerating p.o., but just a small portion, some bites. She is completely alert and oriented x3. I have requested an occupational therapy evaluation. OBJECTIVE: Vital Signs: Temperature 98 degrees, pulse 90, respiratory rate 14, blood pressure 128/52, oxygen saturation 98 on 2 L of nasal cannula. HEENT: Head normocephalic, no trauma. PERRLA. Neck: Supple. No JVD. No masses. Central trachea. Chest: Decreased breath sounds at the bases. No wheezing. She does have some mild rales/crackles bilaterally at the bases. Cardiovascular: RRR. Abdomen: Soft, nontender, nondistended. No hepatosplenomegaly. She does have a midline scar with gayathri, and that looks clean, dry and intact. She has an ileostomy on the right side that looks fine. Extremities: Trace edema. No clubbing, no cyanosis. Neurological examination: The patient is alert. She is oriented x3. She is following commands. LABORATORY: Glucose 132. ASSESSMENT AND PLAN: 1. Acute hypoxic respiratory failure postoperatively with bilateral pleural effusion, anasarca, status post extubation on 11/20/2018. At this moment, this patient seems to be doing much better. She is still on nasal cannula. We will continue with oral Lasix, but I will decrease the dose because this patient is not drinking too much fluid or eating that much. I will monitor the kidney function as well. 2. Acute diffuse colitis, likely secondary to Clostridium difficile colitis leading to toxic megacolon, status post colectomy and ileostomy on 11/15/2018. Continue with the same management. Continue with diet as tolerated. 3. Paroxysmal atrial fibrillation with rapid ventricular response and intermittent sinus tachycardia with premature atrial contraction, currently on controlled oral diltiazem. Echocardiogram was stable without significant valvular abnormality. 4. Protein calorie malnutrition and recent colectomy with poor oral intake. Continue with diet as tolerated. We added megestrol to her medications. 5. Physical deconditioning. Continue physical therapy. I will add occupational therapy. 6. Hyponatremia, resolved. 7. Dehydration. She seems to be stable. 8. Hypotension, resolved. PLAN: The plan is to discharge this patient to a rehab center. I do believe that she has already a bed available. I will monitor this patient closely today. I will get a new chest x-ray in the morning, as well as lab work. If everything looks stable and she is tolerating p.o., I will discharge this patient. cc: Zi Magdaleno MD
[2018-11-26] MEDS ORDERED: TYLENOL PM PO PRN (15:16)
--- NOTE | 2018-11-26 19:00 | GENERAL SURGERY PROGRESS NOTE ---
DATE: 11/26/2018 SUBJECTIVE: Ms. Link is now 11 days after abdominal colectomy and ileostomy for toxic megacolon. She is progressing. She is now awake, alert and eating. Her ileostomy is functioning. She is completely lucid. PLAN: The plans are to transfer to rehab tomorrow. I am pleased with her progress. I will have her return see me in the office after she leaves rehab. We will remove her gayathri before her discharge tomorrow. cc: Clif Silveira MD
[2018-11-26] MEDS: MEVACOR PO SCH (20:28)
--- NOTE | 2018-11-26 20:51 | PULMONOLOGY PROGRESS NOTE ---
DATE: 11/26/2018 SUBJECTIVE: The patient is awake, alert, and conversant. She reports she ate all of her supper this evening. She is gaining some strength. She has a clear cough. OBJECTIVE: Vital Signs: The patient has been afebrile for the last 24 hours. Blood pressure 112/52, heart rate 89, oxygen saturation 99% on 2 L this morning with transitioning to room air. HEENT: Pupils are equal and reactive. Oropharynx is clear. Neck: Supple. Chest: Good air entry bilaterally. Cardiac: S1, S2. Abdomen: Soft. Extremities: Trace edema. LABORATORIES: No new chemistries or CBC today. IMPRESSION: An 88-year-old with: 1. Acute hypoxemic respiratory failure. 2. Pleural effusions. Exam now clear. 3. Protein-calorie malnutrition, with improvement in p.o. intake. 4. Status post emergent colectomy for Clostridium difficile colitis. RECOMMENDATIONS: 1. Continue bronchial hygiene. 2. Anticipate discontinuing oxygen today. 3. Anticipate discharge to a rehabilitation facility tomorrow. 4. No new pulmonary recommendations. Please call as needed. cc: Ever Noel MD
[2018-11-27] MEDS: HUMALOG SUBQ SCH ×4 (00:24→16:50)
[2018-11-27] MEDS: ATROVENT NEB INH SCH ×5 (00:30→16:31)
[2018-11-27] MEDS: CARDIZEM PO SCH ×3 (02:11→15:06)
[2018-11-27 07:14] LABS: HEMATOCRIT 32.9 % (37.0-47.0)
[2018-11-27 07:45] LABS: HEMOGLOBIN 10.5 g/dL (12.0-16.0)
[2018-11-27 07:51] LABS: AGAP 7; BUN 21 mg/dL (8-22); CALCIUM 8.5 mg/dL (8.8-10.2); CHLORIDE 102 mmol/L (98-107); COSMO 281; CREATININE 0.5 mg/dL (0.5-0.9); ESTIMATED GFR > 60; GLUCOSE 103 mg/dL (70-104); POTASSIUM 3.4 mmol/L (3.5-5.1); SODIUM 139 mmol/L (136-145); TCO2 30 mmol/L (25-35)
[2018-11-27] MEDS ORDERED: KLOR-CON PO ONE (08:50)
[2018-11-27] MEDS ORDERED: LASIX PO SCH (09:00)
[2018-11-27] MEDS: MEGACE LIQUID PO SCH (09:01)
[2018-11-27] MEDS: LEVAQUIN PO SCH (09:01)
[2018-11-27] MEDS: CULTURELLE PO SCH (09:01)
[2018-11-27] MEDS: FLAGYL PO SCH ×3 (09:01→18:03)
[2018-11-27] MEDS: ASPIRIN EC PO SCH (09:01)
[2018-11-27] MEDS: LOVENOX SUBQ SCH (09:01)
--- NOTE | 2018-11-27 13:10 | DISCHARGE SUMMARY ---
ADMISSION DATE: 11/10/2018 DISCHARGE DATE: 11/27/2018 PRIMARY CARE PROVIDER: Dr. Wagner Cespedes. CONSULTATIONS: 1. Dr. Herrera, Cardiology. 2. Dr. Noel, Pulmonology. 3. Dr. Clif Silveira, General Surgery. 4. Limb Driver/Case Management. 5. Palliative Care. 6. Wound Care. PROCEDURES AND FINDINGS: 1. Abdominal pelvis CT, 11/10/2018. Impression moderate relatively diffuse colitis. No abscess. No free air. Uncomplicated colonic diverticulosis. No bowel obstruction, right hydronephrosis, which may relate to progressive changes from chronic partial ureteropelvic junction obstruction. Nonobstructing stones in bilateral kidneys, left renal cortical scarring. 2. Chest x-ray, 11/12/2017 reveals somewhat shallow inspiration. No other acute changes. 3. V/Q lung scan, 11/12/2018. Impression no evidence for acute pulmonary embolism. 4. Abdominal pelvis CT, 11/15/2018. Impression bilateral pleural effusions, ascites and anasarca. Worsened generalized colitis. Slightly improved right hydronephrosis. Bilateral nephrolithiasis. 5. Echocardiogram, 11/20/2018 reveals ejection fraction of 65% with normal wall motion. Trace tricuspid regurgitation. Mild pulmonic insufficiency. Trace mitral regurgitation. No pericardial effusion. 6. Chest x-ray, 11/25/2017 reveals interval improvement in basilar atelectasis and there may be underlying infiltrates. These are less pronounced than on the prior study. 7. Surgical procedure, 11/15/2018, abdominal colectomy with end ileostomy. DISCHARGE DIAGNOSES: 1. Acute hypoxic respiratory failure postoperative with bilateral pleural effusion, anasarca, status post extubation on 11/20/2018. Ms. Link's respiratory status has improved and she is now on nasal cannula. 2. Acute diffuse colitis, likely secondary to Clostridium difficile leading to toxic megacolon. She is status post colectomy and ileostomy on 11/15/2018. 3. Paroxysmal atrial fibrillation with rapid ventricular response and intermittent sinus tachycardia with premature atrial contractions. She is currently rate controlled on oral diltiazem, this will be continued. Echocardiogram was stable without significant valvular abnormality and full results as stated above. 4. Protein calorie malnutrition. She has had a recent colectomy with poor oral intake. We have added Megestrol to medications. 5. Physical deconditioning. She will continue with physical therapy upon discharge to rehabilitation. Occupational therapy will be requested as well. 6. Hyponatremia. This has resolved, last sodium 139. 7. Dehydration, stable. 8. Hypotension, resolved. HOSPITAL COURSE: Ms. Link is an 88-year-old female who presented to [facility] with complaints of nausea, vomiting, diarrhea, and generalized weakness. She fell at home on her bathroom floor and was too weak to get up, so she laid there until the next morning when her was able to help her. She has a history of hypertension and dyslipidemia. A CT scan of her abdomen was completed in the emergency room, which revealed moderately relatively diffuse colitis and right hydronephrosis. She was admitted to [facility] with colitis and possible urinary tract infection, hematuria and generalized weakness. She had an elevated D- dimer and therefore a V/Q lung scan was completed, which showed no evidence of pulmonary embolism, extremity venous study was completed as well with no evidence of DVT. She continued to have abdominal pain, generalized weakness, vomiting and diarrhea. She did have a positive Clostridium difficile culture and was treated with antibiotics. She developed atrial fibrillation with RVR, and Dr. Herrera with Cardiology was consulted. She additionally developed acute kidney injury with an increase in her creatinine from admission from 0.7 to 1.4. Her urine culture was positive for Klebsiella pneumoniae. Due to concern for toxic megacolon and sepsis this patient was transferred to [facility] consult. Unfortunately, Ms. Link underwent an abdominal colectomy with end ileostomy secondary to C. diff colitis with toxic megacolon on 11/15/[address] Clif Silveira. She was transferred to the ICU after surgery, at that point she was found to be hypotensive and Levophed was initiated. She also developed a respiratory acidosis and required mechanical ventilation. Dr. Noel with Pulmonology followed Ms. Link during her hospital stay and assisted with ventilation management. She developed bilateral pleural effusions for which she received Lasix. Her septic shock resolved, and her blood pressure improved and the vasopressors were discontinued. On 11/18/2018, Ms. Link was able to be extubated and was kept on BiPAP. She received IV Clinimix for protein calorie malnutrition after her colectomy. She has continued to clinically improve, although she still developed occasional paroxysmal atrial fibrillation overall has been well controlled on oral diltiazem. Echocardiogram was completed to rule out significant valvular abnormalities, and the results are stated above. She is now stable for discharge to rehabilitation. Care for her ostomy and education about her ostomy have been provided by wound care nurse. The patient will be discharged to [facility]. Her last set of vital signs, temperature 98.6 degrees, heart rate 95, blood pressure of 128/61, O2 saturation 97% on 2 L nasal cannula. Her last labs WBC is 6.0, hemoglobin 10.5, hematocrit 32.9. Sodium 139, potassium 3.4, BUN 21, creatinine 0.5, glucose 103, calcium 8.5, AST 35, ALT 26, alkaline phosphatase 219. DISCHARGE MEDICATIONS: Per Dr. Brar. Please see MAR. DISCHARGE INSTRUCTIONS: Get a repeat liver function test done in 7 days after discharge and discuss with your primary care doctor about results if they are abnormal. No driving until cleared by PCP. No heavy lifting and please follow a heart healthy diet. Wound care, please keep incision area clean and dry and follow ostomy instructions per wound care nurse. FOLLOW-UPS: Follow up with PCP within 2 weeks. Discharged to [facility]. Discharge time 35 minutes Dictated by BAO May for Zi Magdaleno MD cc: MD Wagner Longo MD James E. Boyle, MD Robert C. Walker, MD Limb Driver/Case Management Palliative Care Wound Care [facility]
[2018-11-27 17:01] VITALS: BP 119/60
[2018-11-27] MEDS: OXY IR PO PRN (18:03)
== END 2018-11-27 18:48 | DRG 329 ==
LOC: P.ED 13:09 → P.MEDSURG 20:30 → SUATTDRO 20:30 → P.ICU 11-14 05:27 → ICU 11-15 18:52 → 3S 11-21 17:47 → 3N 11-26 00:10
PROVIDERS: ATTEND Internal Medicine
CPT/HCPCS: 36569; 71010; 71020; 71045; 71046; 74177; 78582; 80048; 80053; 81001; 82150; 82270; 82550; 82553; 82805; 82948; 83605; 83690; 83735; 84100; 85014; 85018; 85025; 85379; 85610; 87040; 87045; 87046; 87077; 87088; 87186; 87205; 87275; 87276; 87324; 87449; 87804; 88307; 89055; 93005; 93010; 93306; 93970; 94002; 94003; 94640; 94660; 94760; 94761; 94799; 96361; 96365; 96375; 97110; 97162; 97530; 99285; A9270; A9539; A9540; J0131; J0330; J0696; J0744; J1160; J1170; J1650; J1815; J1940; J1956; J2370; J2405; J2550; J3010; J3475; J3480; J7030; J7040; J7050; J7060; J7070; P9047; Q9967; S0030; S0179; XXXXX